=== PATIENT | male | born 1990 | race African-American/Black ===

== ENCOUNTER 2017-01-06 15:26 | Emergency (ER) | payer OTHER ==
[2017-01-06] MEDS ORDERED: KETOROLAC 30 MG/ML 1 ML VIAL IVP STA (15:49)
[2017-01-06] MEDS ORDERED: SODIUM CHLORIDE 0.9% 1,000 ML IV ONE (15:49)
--- NOTE | 2017-01-06 15:58 | ED ---
Chest Pain HPI - General Chief Complaint: Chest Pain Stated Complaint: CHEST PAIN Time Seen by Provider: 01/06/17 15:37 Source: patient Mode of arrival: ambulatory Limitations: no limitations - History of Present Illness Initial Comments: Is a 26-year-old male with no past medical history presents him in [facility] for chest pain and palpitations. He states that it woke him from sleep and was very intense in nature. He states that it was substernal and nonradiating. It was worse with deep breath. He states that it scared him so much that he refused to go to bed and said go to work. He states that he drank some water and it seemed to light and up little bit however persisted so he decided come in. He does state that his mother and aunt had a heart attack in early age. He does smoke cigarettes however no other drug use. No history DVT or PE. No recent travel or surgeries. Patient also admits to having pelvic discomfort. He states that he's been urinating frequently however denies any dysuria or penile discharge. He does have a history of STD area and he does not know if he is been sexually active with anybody with known transmitted disease. No fevers or chills. - Related Data Home Medications Medication Instructions Recorded Confirmed No Known Home Medications [No 01/06/17 01/06/17 Known Home Medications] Allergies Allergy/AdvReac Type Severity Reaction Status Date / Time morphine Allergy Swelling Verified 01/06/17 15:44 Review of Systems ROS Statement: Those systems with pertinent positive or pertinent negative responses have been documented in the HPI. ROS Other: All systems not noted in ROS Statement are negative. EKG Findings - EKG Comments: EKG Findings:: EKG showing normal sinus rhythm with rate of 68. No ST segment changes or T-wave inversions. QTC is 397. Other intervals normal. No ectopy. Past Medical History Past Medical History: No Reported History History of Any Multi-Drug Resistant Organisms: None Reported Past Surgical History: Orthopedic Surgery Past Psychological History: No Psychological Hx Reported Smoking Status: Never smoker Past Alcohol Use History: None Reported Past Drug Use History: None Reported General Exam - General Exam Comments Initial Comments: Constitutional: Awake alert Appears comfortable Head: Normocephalic atraumatic Eyes: no conjunctival injection No scleral icterus EOMI Neck: No JVD Supple Heart: Regular rate rhythm normal S1-S2 no murmurs Lungs: Clear to auscultation bilaterally No wheezing No rales, mild tenderness to palpation along the sternum Abdomen: Soft nondistended nontender, no tenderness to the palpation in the pelvis Extremities: Non edematous DP pulses intact Radial pulses intact Neuro: A&Ox3 No focal neurologic deficits Psych: Appropriate mood and affect Limitations: no limitations Course Vital Signs 01/06/17 01/06/17 01/06/17 15:29 15:49 17:21 Temperature 98.1 F 97.9 F Pulse Rate 103 H 77 Respiratory 20 16 20 Rate Blood Pressure 142/89 129/64 O2 Sat by Pulse 100 100 Oximetry Chest Pain MDM - MDM This is a 26-year-old male presents emergency department for chest pain. EKG was completely unremarkable. D-dimer was slightly positive so CT was performed that ruled out pulmonary embolism. I have a low suspicion that he has small pulmonary embolism although the CT study was suboptimal. The patient is seen when I am medically stable. He felt improved after Toradol and fluids. At this time I feel the patient's symptoms are likely related to a musculoskeletal etiology however he needs close follow up with his primary doctor. Disposition Clinical Impression: Chest pain Disposition: HOME SELF-CARE Condition: Stable Instructions: Chest Pain (ED) Referrals: None,Stated [Primary Care Provider] - 1-2 days
[2017-01-06 16:48] LABS: Appearance,Urine Clear (Clear); Bilirubin,Urine Negative (Negative); Glucose,Urine (UA) Negative (Negative); Ketones,Urine 2+ (Negative); Leukocyte Esterase,Urine Negative (Negative); Nitrite,Urine Negative (Negative); Protein,Urine Negative (Negative); Specific Gravity,Urine 1.008 (1.001-1.035); UA Billing (MACRO vs. MICRO) CHEM; Urobilinogen,Urine <2.0 mg/dL (<2.0)
[2017-01-06 16:49] LABS: Basophils % (A) 0 %; CH 30.7; CHCM 34.5; Eosinophils # (A) 0.2 k/uL (0-0.7); Eosinophils % (A) 2 %; HCT 47.4 % (39.0-53.0); HDW 2.47; HGB 15.6 gm/dL (13.0-17.5); Luc # (Auto) 0.14; Luc % (Auto) 2; Lymphocytes # (A) 2.6 k/uL (1.0-4.8); Lymphocytes % (A) 28 %; MCH 29.5 pg (25.0-35.0); MCHC 32.9 g/dL (31.0-37.0); MCV 89.5 fL (80.0-100.0); Mean Platelet Volume 7.2; Monocytes # (A) 0.5 k/uL (0-1.0); Monocytes % (A) 5 %; Neutrophils # (A) 5.9 k/uL (1.3-7.7); Neutrophils % (A) 63 %; RBC 5.29 m/uL (4.30-5.90); RDW 14.2 % (11.5-15.5); WBC 9.3 k/uL (3.8-10.6); WBC (Perox) 8.93
[2017-01-06 17:01] LABS: ALT 47 U/L (21-72); AST 48 U/L (17-59); Alkaline Phosphatase 71 U/L (38-126); Anion Gap 10 mmol/L; Blood Urea Nitrogen 5 mg/dL (9-20); Calcium 9.5 mg/dL (8.4-10.2); Carbon Dioxide 24 mmol/L (22-30); Chloride 104 mmol/L (98-107); Glucose 87 mg/dL (74-99); Non-African American GFR(MDRD) >60 (>60 ml/min/1.73 sqM); Potassium 4.2 mmol/L (3.5-5.1); Sodium 138 mmol/L (137-145); Total Bilirubin 1.7 mg/dL (0.2-1.3)
[2017-01-06] MEDS ORDERED: RX INFO: IV CONTRAST WAS GIVEN 1 EACH MISC MISCELLANE PRN (17:08)
[2017-01-06 17:22] VITALS: TEMP 97.9
--- NOTE | 2017-01-06 17:40 | XR ---
EXAMINATION TYPE: XR chest 2V DATE OF EXAM: 01/06/2017 COMPARISON: None HISTORY: Chest pain for one day TECHNIQUE: Frontal and lateral views of the chest are obtained. FINDINGS: There is no focal air space opacity, pleural effusion, or pneumothorax seen. The cardiac silhouette size is within normal limits. The osseous structures are intact. IMPRESSION: No acute cardiopulmonary process.
--- NOTE | 2017-01-06 18:05 | CT ---
EXAMINATION TYPE: CT angio chest DATE OF EXAM: 01/06/2017 COMPARISON: NONE HISTORY: Pleuritic chest pains CT DLP: 359.5 mGycm. Automated Exposure Control for Dose Reduction was Utilized. CONTRAST: CTA scan of the thorax is performed with IV Contrast, patient injected with 100 mL of Omnipaque 350, pulmonary embolism protocol. MIP Images are created on CT scanner and reviewed. FINDINGS: LUNGS: Some motion artifact degradation is seen making evaluation slightly suboptimal. The lungs are grossly clear, there is no concerning parenchymal mass or nodule identified. There is no pleural ef fusion or pneumothorax seen. The tracheobronchial tree is patent. MEDIASTINUM: There is suboptimal bolus with thecal contrast in right and left heart systems but no co nvincing CT evidence for large central pulmonary embolism, smaller segmental and subsegmental PE karen ot be excluded on this exam. There are no greater than 1 cm hilar or mediastinal lymph nodes. No c ardiomegaly or pericardial effusion is seen. No aneurysm or aortic dissection is present. Some patchy density anterior superior mediastinum is felt to reflect some residual thymus tissue in patient of t his age. OTHER: Visualized liver is diffusely low dense consistent with fatty infiltration. IMPRESSION: 1. Suboptimal study without CT evidence for large central pulmonary embolism. Smaller segmental and s ubsegmental PE cannot be excluded on this exam. 2. No suspicious acute pulmonary process.
[2017-01-06 18:28] VITALS: BP 129/67; PULSE 84; RESP 17
== END 2017-01-06 18:27 | disposition home or self-care (01) ==
LOC: EC 15:26
DX: R07.2 Precordial pain (principal); R00.2 Palpitations; R35.0 Frequency of micturition; Z88.5 Allergy status to narcotic agent
CPT/HCPCS: 36415; 93005; 85379; 80053; 84484; 85025; 81003; 87491; 87591; 71020; 71275; 99285; 96374; 96361 ×2; Q9967; J1885

== ENCOUNTER 2017-02-09 04:47 | Inpatient (IN) | payer MEDICAID, OTHER ==
--- NOTE | 2017-02-09 05:27 | ED ---
General Adult HPI - General Chief complaint: Psychiatric Symptoms Stated complaint: mental health Time Seen by Provider: 02/09/17 05:15 Source: patient, family, RN notes reviewed Mode of arrival: ambulatory Limitations: no limitations - History of Present Illness Initial comments: Patient is a pleasant 26-year-old male presenting to the emergency department with depression and suicidal thoughts. Patient was recently incarcerated. No current homicidal thoughts. Patient amiss to having suicidal thoughts with plan of shooting himself in the head. Patient does have a history of overdose suicide attempt a few months ago. Patient did drink alcohol today. No street drugs. No physical complaints. Patient states one time he had a vivid dream that he awoke from with questionable hallucination however otherwise no hallucinations. Patient admits to being agitated prior to arrival. - Related Data Home Medications Medication Instructions Recorded Confirmed No Known Home Medications [No 01/06/17 01/06/17 Known Home Medications] Allergies Allergy/AdvReac Type Severity Reaction Status Date / Time morphine Allergy Swelling Verified 02/09/17 05:03 Review of Systems ROS Statement: Those systems with pertinent positive or pertinent negative responses have been documented in the HPI. ROS Other: All systems not noted in ROS Statement are negative. Constitutional: Denies: fever Eyes: Denies: eye pain ENT: Denies: ear pain Respiratory: Denies: cough Cardiovascular: Denies: chest pain Endocrine: Denies: fatigue Gastrointestinal: Denies: vomiting Genitourinary: Denies: dysuria Musculoskeletal: Denies: back pain Skin: Denies: rash Neurological: Denies: weakness Psychiatric: Reports: depression, suicidal thoughts Past Medical History Past Medical History: No Reported History History of Any Multi-Drug Resistant Organisms: None Reported Past Surgical History: Orthopedic Surgery Past Psychological History: No Psychological Hx Reported Smoking Status: Never smoker Past Alcohol Use History: None Reported Past Drug Use History: None Reported General Exam Limitations: no limitations General appearance: alert, in no apparent distress Head exam: Present: atraumatic Eye exam: Present: normal appearance Neck exam: Present: normal inspection Respiratory exam: Present: normal lung sounds bilaterally Cardiovascular Exam: Present: regular rate, normal rhythm GI/Abdominal exam: Present: soft. Absent: tenderness Extremities exam: Present: normal inspection Neurological exam: Present: alert Psychiatric exam: Present: depressed, suicidal ideation Skin exam: Present: normal color Course Vital Signs 09/12/17 04:55 Temperature 97.7 F Pulse Rate 124 H Respiratory 18 Rate Blood Pressure 157/95 O2 Sat by Pulse 97 Oximetry Disposition Referrals: None,Stated [Primary Care Provider] - 1-2 days
[2017-02-09] MEDS ORDERED: MAG HYDROX/AL HYDROX/SIMETH 30 ML CUP PO PRN (15:45)
[2017-02-09] MEDS ORDERED: ACETAMINOPHEN TAB 325 MG TAB PO PRN (15:45)
[2017-02-09] MEDS ORDERED: MAGNESIUM HYDROXIDE 2,400 MG/10 ML CUP PO PRN (15:45)
[2017-02-09 16:19] LABS: Appearance,Urine Clear (Clear); Bacteria,Urine Rare /hpf; Bilirubin,Urine Negative (Negative); Glucose,Urine (UA) Negative (Negative); Ketones,Urine Trace (Negative); Leukocyte Esterase,Urine Small (Negative); Mucus,Urine Rare /hpf; Nitrite,Urine Negative (Negative); PH, Urine 5.5 (5.0-8.0); Particle Count 2948; Protein,Urine Trace (Negative); RBC,Urine <1 /hpf (0-5); Specific Gravity,Urine 1.014 (1.001-1.035); UA Billing (MACRO vs. MICRO) MICRO; Urobilinogen,Urine <2.0 mg/dL (<2.0); WBC,Urine 15 /hpf (0-5)
[2017-02-09] MEDS ORDERED: CALCIUM CARBONATE 500 MG CHEWABLE PO PRN (17:49)
[2017-02-09] MEDS ORDERED: BENZOCAINE/MENTHOL LOZENG 1 EACH LOZENGE MUCOUS MEM PRN (17:49)
[2017-02-09] MEDS: PANTOPRAZOLE 40 MG TABLET PO SCH (17:59)
--- NOTE | 2017-02-09 18:03 | P.HPMEDMHU ---
History of Present Illness H&P Date: 02/09/17 Chief Complaint: sore throat Patient is a 26-year-old -Spanish male with a past medical history of depression, tobacco abuse, alcohol abuse and possible hypertension who presented to the ER with complaint of suicidal ideation. He was admitted to the mental health unit and we are requested to evaluate him for high blood pressure and sore throat. He complains of throat swelling and feeling as though his uvula is enlarged. This is associated with mild throat pain. He also has some retrosternal chest pain without radiation that is intermittent. He is not sure that it is associated with food, exertion, rest, laying flat. He has been drinking approximately 3-4 days out of the week and believes he consumes approximately 1 gallon of alcohol weekly. He states his last drink was last evening. He was seen in the ER recently for an evaluation of chest pain and negative EKG and a negative CTA of the chest. His chest pain is reproducible and does not appear to be cardiac in nature. Review of Systems General: no fever/chills, no rigors, no weight loss/weight gain, no change in appetite Eyes: No double vision, no unusual blurry vision, no loss of vision ENT: No rhinorrhea, congestion, no trush, + sore throat Cardiovascular: + chest pain, no palpitations, no syncope, no edema, No paroxysmal nocturnal dyspnea, No dizziness Pulmonary: No shortness of breath, no wheezing, no cough, hemoptysis Abdominal: No abdominal pain, no constipation, no diarrhea, no vomiting, no nausea, no distention Genitourinary: No dysuria, no urinary frequency, no hematuria, no unusual discharge/odor Neuro: No unusual paresthesias, no unusual paresis/paralysis, no headache Dermatologic: No unusual rashes, no unusual lesions, no unusual changes in nails Endocrinology: No intolerance to heat/cold, no excessive thirst,] no unusual fatigue Hematologic: No unusual bruising or bleeding, no unusual cervical lymphadenopathy Psychiatric: Depression and suicidal ideation, no changes in sleep pattern Past Medical History Past Medical History: No Reported History Additional Past Medical History / Comment(s): Pt states lately he has had some HTN but not on RX History of Any Multi-Drug Resistant Organisms: None Reported Past Surgical History: Orthopedic Surgery Additional Past Surgical History / Comment(s): Bilateral knee arthroscopies. Past Anesthesia/Blood Transfusion Reactions: No Reported Reaction Past Psychological History: Depression Smoking Status: Current every day smoker Past Alcohol Use History: Daily, Heavy Additional Past Alcohol Use History / Comment(s): Patient tells me that he drinks approximately 3-4 days weekly amitriptyline 2 double shots to 1/5. His last drink was approximately 24 hours ago. Past Drug Use History: None Reported - Past Family History Father History Unknown: Yes Mother Family Medical History: CVA/TIA, Diabetes Mellitus, Renal Disease Additional Family Medical History / Comment(s): Mother at the age of 45yrs from a heart attack. She had multiple medical problems including: heart disease , ESRD on dialysis, diabetic neuropathy and a CVA. Medications and Allergies Home Medications Medication Instructions Recorded Confirmed Type No Known Home Medications [No 01/06/17 02/09/17 History Known Home Medications] Allergies Allergy/AdvReac Type Severity Reaction Status Date / Time morphine Allergy Swelling Verified 02/09/17 16:47 Physical Exam Osteopathic Statement: *. No significant issues noted on an osteopathic structural exam other than those noted in the History and Physical/Consult. Vitals: Vital Signs Temp Pulse Pulse Resp BP BP Pulse Ox 02/09/17 16:06 98.7 F 93 15 135/81 97 02/09/17 15:28 88 20 140/75 97 02/09/17 10:12 98.1 F 95 16 135/75 99 02/09/17 04:55 97.7 F 124 H 18 157/95 97 Intake and Output 02/09/17 02/09/17 02/09/17 06:59 14:59 22:59 Other: Weight 97.976 kg 96.5 kg Patient Weight 02/10/17 06:59 Weight 96.5 kg General: non toxic, no distress, appears at stated age, normal weight Derm: no rashes, no lesions, no ulcers, no unusual ecchymoses Head: atraumatic, normocephalic, symmetric Eyes: EOMI, no lid lag, anicteric sclera, pupils equal round reactive to light ENT: no post nasal drip, no thrush , nearest patent, + pharyngeal erythema Neck: No thyromegaly, no cervical lymphadenopathy, trachea midline, supple Mouth: no lip lesion, mucus membranes moist Cardiovascular: + Reproducible chest pain S1S2 reg, no murmur, positive posterior tibial pulse bilateral, no edema , no JVD, no clubbing, no cyanosis, capillary refill less than 2 seconds Lungs: CTA bilateral, no rhonchi, no rales , no accessory muscle use Abdominal: soft, + tender to palpation epigastric, no guarding, no appreciable organomegaly, normal bowel sounds Ext: no gross muscle atrophy, muscle strength 5 out of 5 in all 4 extremities grossly, no contractures, Neuro: CN II-XI grossly intact, light touch intact all 4 extremities, finger to nose within normal limits, Psych: Alert, oriented, appropriate affect Cranial Nerve Examination - Cranial Nerves Cranial Nerve II- Optic: Intact Cranial Nerve III- Oculomotor: Intact Cranial Nerve IV- Trochlear: Intact Cranial Nerve V- Trigeminal: Intact Cranial Nerve - Abducens: Intact Cranial Nerve VII- Facial: Intact Cranial Nerve VIII- Auditory: Intact Cranial Nerve IX- Glossopharyngeal: Intact Cranial Nerve X- Vagus: Intact Cranial Nerve XI- Accessory: Intact Cranial Nerve XII- Hypoglossal: Intact Results Labs: Abnormal Lab Results - Last 24 Hours (Table) 02/09/17 Range/Units 16:02 Urine Protein Trace H (Negative) Urine Ketones Trace H (Negative) Ur Leukocyte Esterase Small H (Negative) Urine WBC 15 H (0-5) /hpf Urine Bacteria Rare H (None) /hpf Urine Mucus Rare H (None) /hpf Assessment and Plan Plan: #Probable alcoholic gastritis -PPI daily -When necessary Tums -Alcohol cessation #Sore throat, suspect secondary to above from acid reflux -PPI -When necessary lozenges #Alcohol abuse -Sensation -Alcohol withdrawal management as per psychiatry -add daily folic acid and thiamine supplementation 7 days. #Tobacco abuse -Cessation recommended -Nicotine replacement #Depression with suicidal ideation -Your psych management Have instructed the patient to notify nursing should his sore throat not resolved after several days of treatment with PPI. Thank you for allowing us to participate in the care of this patient. We will follow peripherally. Do not hesitate to contact us with questions. Someone can be reached from the [facility] hospitalist group at all hours of the day at [phone].
[2017-02-09] MEDS: NICOTINE 14MG/24HR PATCH TRANSDERM SCH (20:24)
[2017-02-09] MEDS: LORazepam 1 MG TAB PO PRN (23:22)
[2017-02-10] MEDS: NICOTINE 14MG/24HR PATCH TRANSDERM SCH (08:17)
[2017-02-10] MEDS: PANTOPRAZOLE 40 MG TABLET PO SCH (08:17)
[2017-02-10] MEDS ORDERED: NICOTINE 14MG/24HR PATCH TRANSDERM SCH (09:00)
[2017-02-10 09:46] LABS: ALT 91 U/L (21-72); AST 68 U/L (17-59); Alkaline Phosphatase 76 U/L (38-126); Anion Gap 11 mmol/L; Blood Urea Nitrogen 8 mg/dL (9-20); Calcium 9.5 mg/dL (8.4-10.2); Carbon Dioxide 25 mmol/L (22-30); Chloride 103 mmol/L (98-107); Glucose 137 mg/dL (74-99); Non-African American GFR(MDRD) >60 (>60 ml/min/1.73 sqM); Potassium 4.3 mmol/L (3.5-5.1); Sodium 139 mmol/L (137-145); Total Bilirubin 1.8 mg/dL (0.2-1.3); Total Protein 6.8 g/dL (6.3-8.2)
[2017-02-10 09:47] LABS: Basophils % (A) 1 %; CH 29.7; CHCM 33.3; Eosinophils # (A) 0.1 k/uL (0-0.7); Eosinophils % (A) 2 %; HCT 47.2 % (39.0-53.0); HDW 2.36; HGB 15.5 gm/dL (13.0-17.5); Luc # (Auto) 0.19; Luc % (Auto) 3; Lymphocytes # (A) 1.8 k/uL (1.0-4.8); Lymphocytes % (A) 31 %; MCH 29.3 pg (25.0-35.0); MCHC 32.8 g/dL (31.0-37.0); MCV 89.5 fL (80.0-100.0); Mean Platelet Volume 7.1; Monocytes # (A) 0.5 k/uL (0-1.0); Monocytes % (A) 8 %; Neutrophils # (A) 3.4 k/uL (1.3-7.7); Neutrophils % (A) 56 %; RBC 5.28 m/uL (4.30-5.90); RDW 12.7 % (11.5-15.5)
[2017-02-10] MEDS: THIAMINE 100 MG TAB PO SCH (12:15)
[2017-02-10] MEDS: FOLIC ACID 1 MG TAB PO SCH (12:15)
[2017-02-10] MEDS: METOPROLOL SUCCINATE (ER) 50 MG TAB.ER.24H PO SCH (12:15)
[2017-02-10] MEDS: LORazepam 1 MG TAB PO PRN (12:17)
[2017-02-10 13:59] VITALS: BMI 28.8
[2017-02-10] MEDS ORDERED: LORazepam 1 MG TAB PO SCH (21:00)
[2017-02-10] MEDS: LITHIUM CARBONATE ER 450 MG TABLET.ER PO SCH (21:36)
[2017-02-10] MEDS: traZODone HCL 100 MG TAB PO SCH (21:36)
[2017-02-10 22:03] LABS: Treponemal Ab Non-Reactive (Non-Reactive)
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
[2017-02-11] MEDS: METOPROLOL SUCCINATE (ER) 50 MG TAB.ER.24H PO SCH (08:48)
[2017-02-11] MEDS: NICOTINE 14MG/24HR PATCH TRANSDERM SCH (08:48)
[2017-02-11] MEDS: PANTOPRAZOLE 40 MG TABLET PO SCH (08:49)
[2017-02-11] MEDS: LORazepam 1 MG TAB PO PRN (08:51)
[2017-02-11] MEDS: THIAMINE 100 MG TAB PO SCH (11:44)
[2017-02-11] MEDS: FOLIC ACID 1 MG TAB PO SCH (11:44)
[2017-02-11] MEDS ORDERED: hydrOXYzine PAMOATE 25 MG CAP PO PRN (14:33)
--- NOTE | 2017-02-11 14:54 | P.PN ---
Subjective Principal diagnosis: Bipolar 1 disorder, most recent episode depressed without psychotic features Patient has shown gains in insight and is more goal oriented than at time of discharge. He states and looks and more kempt. Patient reports tolerating his current regimen of Eskalith + Trazodone well although he does report EDS with Ativan when given during the day and inquires if a different anxiolytic can be substitted that is less sedating. Patient is agreeable to trial of Vistaril. At this time, patient's mood is mildly dysphoric but affect is much brighter today and reactive. He has been actively participating in all groups and recreational activities. At this time, he denies SI/HI/AVH. Patient requests discharge tomorrow so he can return to his two jobs Wednesday. Objective - Vital Signs Vital signs: Vital Signs Temp 97.9 F 02/11/17 06:50 Pulse 94 02/11/17 10:30 Resp 18 02/11/17 10:30 BP 135/77 02/11/17 10:30 Pulse Ox 97 02/09/17 16:06 Intake & Output 02/10/17 02/11/17 02/11/17 18:59 06:59 18:59 Weight 96.5 kg - Musculoskeletal Musculoskeletal: Present: gait normal - Psychiatric Psychiatric: Present: A&O x's 3, appropriate affect, intact judgment & insight - Labs CBC & Chem 7: 02/10/17 08:52 02/10/17 08:52 Assessment and Plan (1) Bipolar I disorder, most recent episode depressed, severe without psychotic features Status: Acute (2) Complicated bereavement Status: Acute Plan: Continue regimen, add Vistaril 50-mg PO Q-6HR for anxiety for patient to see if this is less sedating than Ativan, provisional discharge tomorrow
[2017-02-11] MEDS: LITHIUM CARBONATE ER 450 MG TABLET.ER PO SCH (20:18)
[2017-02-11] MEDS: traZODone HCL 100 MG TAB PO SCH (20:18)
[2017-02-12 06:47] VITALS: TEMP 97.7
[2017-02-12] MEDS: FOLIC ACID 1 MG TAB PO SCH (09:48)
[2017-02-12] MEDS: NICOTINE 14MG/24HR PATCH TRANSDERM SCH (09:48)
[2017-02-12] MEDS: METOPROLOL SUCCINATE (ER) 50 MG TAB.ER.24H PO SCH (09:48)
[2017-02-12] MEDS: PANTOPRAZOLE 40 MG TABLET PO SCH (09:48)
[2017-02-12 09:57] VITALS: BP 120/57; PULSE 107; RESP 20
== END 2017-02-12 12:14 | disposition home or self-care (01) | DRG 885 ==
LOC: EC 04:47 → 3MHU 15:11
PROVIDERS: ADMIT Psychiatry & Neurology Psychiatry; ATTEND Psychiatry & Neurology Psychiatry
DX: F31.4 Bipolar disorder, current episode depressed, severe, without psychotic features (principal); R45.851 Suicidal ideations; A74.9 Chlamydial infection, unspecified; F43.21 Adjustment disorder with depressed mood; G47.00 Insomnia, unspecified; Z91.5 Personal history of self-harm; Z63.8 Other specified problems related to primary support group; Z88.5 Allergy status to narcotic agent
CPT/HCPCS: 80053; 80306; 81001; 82075; 84443; 85025; 86780; 87390; 99285

== ENCOUNTER 2017-02-12 23:48 | Emergency (ER) | payer OTHER ==
[2017-02-12] MEDS ORDERED: LORazepam 2 MG/ML SYRINGE IM STA (23:55)
[2017-02-12] MEDS ORDERED: HALOPERIDOL LACTATE 5 MG/ML 1 ML VIAL IM STA (23:55)
[2017-02-12] MEDS ORDERED: diphenhydrAMINE 50 MG/ML 1 ML VIAL IM STA (23:55)
--- NOTE | 2017-02-13 00:15 | ED ---
General Adult HPI - General Source: patient, police, RN notes reviewed, old records reviewed Mode of arrival: ambulatory Limitations: no limitations <Lamin Sifuentes - Last Filed: 02/13/17 00:14> <Jaspal De León - Last Filed: 02/13/17 12:30> - General Chief complaint: Psychiatric Symptoms Stated complaint: Mental Health Time Seen by Provider: 02/13/17 00:01 - History of Present Illness Initial comments: This is a 18-year-old male here for evaluation of psychiatric disease. She has history of psychiatric disease. Patient is coming in the ER for homicidal and suicidal thoughts. Patient is severely agitated uncooperative and combative with staff and PD upon arrival. (Lamin Sifuentes) - Related Data Previous Rx's Medication Instructions Recorded [place] Carbonate ER [Lithobid] 450 mg PO BID #28 tablet.er 02/12/17 Metoprolol Succinate (ER) [Toprol 50 mg PO DAILY #14 tab 02/12/17 XL] hydrOXYzine PAMOATE [Vistaril] 50 mg PO TID PRN #42 cap 02/12/17 traZODone HCL [Desyrel] 100 mg PO HS #14 tab 02/12/17 Allergies Allergy/AdvReac Type Severity Reaction Status Date / Time morphine Allergy Swelling Verified 02/12/17 23:57 Review of Systems ROS Other: All systems not noted in ROS Statement are negative. <Lamin Sifuentes - Last Filed: 02/13/17 00:14> ROS Other: All systems not noted in ROS Statement are negative. <Jaspal De León - Last Filed: 02/13/17 12:30> ROS Statement: Those systems with pertinent positive or pertinent negative responses have been documented in the HPI. Past Medical History Past Medical History: No Reported History Additional Past Medical History / Comment(s): Pt states lately he has had some HTN but not on RX History of Any Multi-Drug Resistant Organisms: None Reported Past Surgical History: Orthopedic Surgery Additional Past Surgical History / Comment(s): Bilateral knee arthroscopies. Past Anesthesia/Blood Transfusion Reactions: No Reported Reaction Past Psychological History: Depression Smoking Status: Current every day smoker Past Alcohol Use History: Daily, Heavy Past Drug Use History: None Reported - Past Family History Father History Unknown: Yes Mother Family Medical History: CVA/TIA, Diabetes Mellitus, Renal Disease Additional Family Medical History / Comment(s): Mother at the age of 45yrs from a heart attack. She had multiple medical problems including: heart disease , ESRD on dialysis, diabetic neuropathy and a CVA. <Lamin Sifuentes - Last Filed: 02/13/17 00:14> General Exam Limitations: no limitations General appearance: alert, anxious, in distress Head exam: Present: atraumatic, normocephalic, normal inspection Eye exam: Present: normal appearance, PERRL, EOMI. Absent: scleral icterus, conjunctival injection, periorbital swelling ENT exam: Present: normal exam, mucous membranes moist Neck exam: Present: normal inspection. Absent: tenderness, meningismus, lymphadenopathy Respiratory exam: Present: normal lung sounds bilaterally. Absent: respiratory distress, wheezes, rales, rhonchi, stridor Cardiovascular Exam: Present: regular rate, normal rhythm, normal heart sounds. Absent: systolic murmur, diastolic murmur, rubs, gallop, clicks GI/Abdominal exam: Present: soft, normal bowel sounds. Absent: distended, tenderness, guarding, rebound, rigid Extremities exam: Present: normal inspection, full ROM, normal capillary refill. Absent: tenderness, pedal edema, joint swelling, calf tenderness Back exam: Present: normal inspection Neurological exam: Present: alert, oriented X3, CN II-XII intact Psychiatric exam: Present: normal affect, normal mood Skin exam: Present: warm, dry, intact, normal color. Absent: rash <Lamin Sifuentes - Last Filed: 02/13/17 00:14> Course <Lamin Sifuentes - Last Filed: 02/13/17 00:14> <Jaspal De León - Last Filed: 02/13/17 12:30> Vital Signs 02/12/17 02/13/17 02/13/17 23:51 07:56 10:06 Temperature 98 F Pulse Rate 123 H 82 89 Respiratory 24 16 18 Rate Blood Pressure 148/79 116/56 133/78 O2 Sat by Pulse 100 98 99 Oximetry - Reevaluation(s) Reevaluation #1: 02/13/17 00:14 The patient patient bear significant threat to staff, currently on restraints with,: Physical (Lamin Sifuentes) Procedures - Restraint - Face to Face Restraint Occurrence 1 Patient's Immediate Situation: Endangers self safety Patient's Reaction to the Intervention: Uncooperative, Angry, Hostile, Belligerent, Aggressive, Combative Patient's Medical & Behavioral Condition: Anxious, Agitated Need to Continue or Terminate Restraint or Seclusion: Continue <Lamin Sifuentes - Last Filed: 02/13/17 00:14> Medical Decision Making <Lamin Sifuentes - Last Filed: 02/13/17 00:14> <Jaspal De León - Last Filed: 02/13/17 12:30> - Medical Decision Making The patient was deemed to be sober and was evaluated by the psychiatric service. He currently is not suicidal or homicidal. He will be discharged. A negative certification was filled out by me. I did discuss this with the patient. (Jaspal De León) - Lab Data Lab Results 02/13/17 02/13/17 Range/Units 01:13 01:14 Urine Opiates Screen Not Detected (NotDetected) Ur Oxycodone Screen Not Detected (NotDetected) Urine Methadone Screen Not Detected (NotDetected) Ur Propoxyphene Screen Not Detected (NotDetected) Ur Barbiturates Screen Not Detected (NotDetected) U Tricyclic Antidepress Not Detected (NotDetected) Ur Phencyclidine Scrn Not Detected (NotDetected) Ur Amphetamines Screen Not Detected (NotDetected) U Methamphetamines Scrn Not Detected (NotDetected) U Benzodiazepines Scrn Not Detected (NotDetected) Urine Cocaine Screen Not Detected (NotDetected) U Marijuana (THC) Screen Not Detected (NotDetected) Serum Alcohol 295 mg/dL Disposition <Lamin Sifuentes - Last Filed: 02/13/17 00:14> <Jaspal De Lóen - Last Filed: 02/13/17 12:30> Clinical Impression: Adjustment reaction, Alcohol intoxication Disposition: HOME SELF-CARE Condition: Good Instructions: Alcohol Intoxication (ED), Anxiety (ED) Referrals: None,Stated [Primary Care Provider] - 1-2 days
[2017-02-13 12:36] VITALS: BP 121/58; PULSE 81; RESP 20; TEMP 98
== END 2017-02-13 12:35 | disposition home or self-care (01) ==
LOC: EC 23:48
DX: F43.20 Adjustment disorder, unspecified (principal); F10.120 Alcohol abuse with intoxication, uncomplicated; F32.9 Major depressive disorder, single episode, unspecified; F17.200 Nicotine dependence, unspecified, uncomplicated; Z88.5 Allergy status to narcotic agent
CPT/HCPCS: 36415; 80306; 80320; 99285; 96372 ×3; J2060; J1200; J1630

== ENCOUNTER 2018-01-17 13:04 | Inpatient (IN) | payer OTHER ==
[2018-01-17] MEDS ORDERED: HYDROcodone/APAP 5-325MG 1 EACH TAB PO STA (14:10)
[2018-01-17] MEDS ORDERED: PROPARACAINE 0.5% OPHTH DROPS 15 ML BTL RIGHT EYE STA (14:10)
[2018-01-17 14:59] LABS: Basophils % (A) 0 %; Eosinophils # (A) 0.3 k/uL (0-0.7); Eosinophils % (A) 2 %; HCT 47.7 % (39.0-53.0); HGB 16.2 gm/dL (13.0-17.5); Lymphocytes # (A) 3.3 k/uL (1.0-4.8); Lymphocytes % (A) 31 %; MCH 28.9 pg (25.0-35.0); Mean Platelet Volume 6.7; Monocytes # (A) 0.6 k/uL (0-1.0); Monocytes % (A) 6 %; Neutrophils # (A) 6.2 k/uL (1.3-7.7); Neutrophils % (A) 59 %; Platelet Count 335 k/uL (150-450); RBC 5.61 m/uL (4.30-5.90); RDW 13.5 % (11.5-15.5); WBC 10.5 k/uL (3.8-10.6)
[2018-01-17 15:14] LABS: ALT 70 U/L (21-72); AST 36 U/L (17-59); Albumin 3.9 g/dL (3.5-5.0); Alkaline Phosphatase 90 U/L (38-126); Anion Gap 10 mmol/L; Blood Urea Nitrogen 10 mg/dL (9-20); Calcium 9.3 mg/dL (8.4-10.2); Carbon Dioxide 22 mmol/L (22-30); Chloride 107 mmol/L (98-107); Glucose 117 mg/dL (74-99); Potassium 4.2 mmol/L (3.5-5.1); Sodium 139 mmol/L (137-145); Total Bilirubin 0.6 mg/dL (0.2-1.3); Total Protein 6.4 g/dL (6.3-8.2)
--- NOTE | 2018-01-17 15:15 | CT ---
EXAMINATION TYPE: CT orbits w con DATE OF EXAM: 01/17/2018 COMPARISON: None HISTORY: Right eye swelling x 1 1/[address] DLP: 318.4 mGycm Automated exposure control for dose reduction was used. CONTRAST: Performed with IV Contrast, patient injected with 100 mL of Isovue M300. FINDINGS: There is mild skin thickening and subcutaneous edema anterior and lateral to the right globe preorbit al region. Intraconal fat is preserved bilaterally. Orbital floors and mckinney are intact. Rectus muscl es are symmetric and within normal limits. There is mild to minimal mucosal thickening in visualized portion of right maxillary sinus. Remainder paranasal sinuses are clear. Visualized portion of brain parenchyma is unremarkable. Visualized portion of mastoid air cells show no suspicious opacification. IMPRESSION: NO POST SEPTAL INFECTION OR SUSPICIOUS FAT STRANDING.
--- NOTE | 2018-01-17 15:15 | ED ---
Eye Problem HPI - General Source: patient Mode of arrival: ambulatory Limitations: no limitations <Arley Cohen - Last Filed: 01/17/18 15:37> <Jaspal De León - Last Filed: 01/17/18 15:50> - General Chief complaint: Eye Problems Stated complaint: eye swelling, Time Seen by Provider: 01/17/18 13:58 - History of Present Illness Initial comments: This is a 27-year-old male presents emergency Department chief complaint of right eye pain. Patient states it started 10 days ago with some right eye irritation and are sty. He states that he was using some sty cream which made it worse so use some old eyedrops that he had. Patient states he had no improvements he went to [facility] last Wednesday was placed on some eyedrops. He was follow-up with an court assistant on Wednesday who checked his eye on told him it was not his eye that there something behind around his eye causing the issue. He was given a prescription for CT and given a prescription for prednisone. He did not had a CT performed though he did take the prednisone-induced eyedrops. They states is swollen much more after stopping the eyedrops days had increased pain and pressure. Patient states that his vision is blurred. Patient states that he's had no fever no chills he does complain of mild headache. Patient denies any trauma. (Arley Cohen) - Related Data Home Medications Medication Instructions Recorded Confirmed Acamprosate Calcium [Campral] 333 mg PO TID 01/17/18 01/17/18 [place] Carbonate 600 mg PO DAILY 01/17/18 01/17/18 Loratadine [Claritin] 10 mg PO DAILY 01/17/18 01/17/18 Metoprolol Tartrate [Lopressor] 50 mg PO BID 01/17/18 01/17/18 Omeprazole 20 mg PO DAILY 01/17/18 01/17/18 QUEtiapine FUMARATE 400 mg PO HS 01/17/18 01/17/18 hydrOXYzine PAMOATE [Vistaril] 50 mg PO TID 01/17/18 01/17/18 traZODone HCL [Desyrel] 200 mg PO HS 01/17/18 01/17/18 Allergies Allergy/AdvReac Type Severity Reaction Status Date / Time morphine Allergy Swelling Verified 01/17/18 14:31 Review of Systems ROS Other: All systems not noted in ROS Statement are negative. <MariamArley rubio - Last Filed: 01/17/18 15:37> ROS Other: All systems not noted in ROS Statement are negative. <Jaspal De León - Last Filed: 01/17/18 15:50> ROS Statement: Those systems with pertinent positive or pertinent negative responses have been documented in the HPI. Past Medical History Past Medical History: Asthma Additional Past Medical History / Comment(s): Pt states lately he has had some HTN but not on RX History of Any Multi-Drug Resistant Organisms: None Reported Past Surgical History: Orthopedic Surgery Additional Past Surgical History / Comment(s): Bilateral knee arthroscopies. Past Anesthesia/Blood Transfusion Reactions: No Reported Reaction Past Psychological History: Depression Smoking Status: Current every day smoker Past Alcohol Use History: Daily, Heavy Past Drug Use History: None Reported - Past Family History Father History Unknown: Yes Mother Family Medical History: CVA/TIA, Diabetes Mellitus, Renal Disease Additional Family Medical History / Comment(s): Mother at the age of 45yrs from a heart attack. She had multiple medical problems including: heart disease , ESRD on dialysis, diabetic neuropathy and a CVA. <MariamArley rubio - Last Filed: 01/17/18 15:37> General Exam Limitations: no limitations General appearance: alert, in no apparent distress Head exam: Present: atraumatic, normocephalic, normal inspection Eye exam: Present: PERRL, EOMI, conjunctival injection (Severe right), periorbital swelling (Right), periorbital tenderness. Absent: normal appearance , scleral icterus Expanded Eyelids: Normal Inspection: Left, Swelling: Right Pupils: Regular, Round: Bilateral Sclera/Conjunctival: Normal Inspection: Left, Injection: Right Anterior chamber: Normal Inspection: Bilateral IOP (R) in mmH IOP (L) in mmH ENT exam: Present: normal exam, normal oropharynx, mucous membranes moist Neck exam: Present: normal inspection, full ROM. Absent: tenderness, meningismus, lymphadenopathy Respiratory exam: Present: normal lung sounds bilaterally. Absent: respiratory distress, wheezes, rales, rhonchi, stridor Cardiovascular Exam: Present: regular rate, normal rhythm, normal heart sounds. Absent: systolic murmur, diastolic murmur, rubs, gallop, clicks <VickiArley Vergara - Last Filed: 01/17/18 15:37> Course <VickiArley Vergara - Last Filed: 01/17/18 15:37> <Jaspal De León - Last Filed: 01/17/18 15:50> Vital Signs 01/17/18 13:35 Temperature 98.2 F Pulse Rate 79 Respiratory 18 Rate Blood Pressure 147/79 O2 Sat by Pulse 98 Oximetry - Reevaluation(s) Reevaluation #1: 01/17/18 15:50 PA supervision: I personally saw and examined the patient. I reviewed and agree with the PA findings including all diagnostic interpretations and treatment plans is written unless otherwise stated. I did discuss case with Dr. Barger. Ophthalmology will be consulted. MRI of the orbits is ordered. ( Jaspal De León) Medical Decision Making - Lab Data Result diagrams: 01/17/18 14:41 01/17/18 14:41 <VickiArley Vergara - Last Filed: 01/17/18 15:37> - Lab Data Result diagrams: 01/17/18 14:41 01/17/18 14:41 <Jaspal De León - Last Filed: 01/17/18 15:50> - Lab Data Lab Results 01/17/18 01/17/18 Range/Units 14:41 14:41 WBC 10.5 (3.8-10.6) k/uL RBC 5.61 (4.30-5.90) m/uL Hgb 16.2 (13.0-17.5) gm/dL Hct 47.7 (39.0-53.0) % MCV 85.0 (80.0-100.0) fL MCH 28.9 (25.0-35.0) pg MCHC 34.0 (31.0-37.0) g/dL RDW 13.5 (11.5-15.5) % Plt Count 335 (150-450) k/uL Neutrophils % 59 % Lymphocytes % 31 % Monocytes % 6 % Eosinophils % 2 % Basophils % 0 % Neutrophils # 6.2 (1.3-7.7) k/uL Lymphocytes # 3.3 (1.0-4.8) k/uL Monocytes # 0.6 (0-1.0) k/uL Eosinophils # 0.3 (0-0.7) k/uL Basophils # 0.0 (0-0.2) k/uL Sodium 139 (137-145) mmol/L Potassium 4.2 (3.5-5.1) mmol/L Chloride 107 (98-107) mmol/L Carbon Dioxide 22 (22-30) mmol/L Anion Gap 10 mmol/L BUN 10 (9-20) mg/dL Creatinine 0.70 (0.66-1.25) mg/dL Est GFR (CKD-EPI)AfAm >90 (>60 ml/min/1.73 sqM) Est GFR (CKD-EPI)NonAf >90 (>60 ml/min/1.73 sqM) Glucose 117 H (74-99) mg/dL Calcium 9.3 (8.4-10.2) mg/dL Total Bilirubin 0.6 (0.2-1.3) mg/dL AST 36 (17-59) U/L ALT 70 (21-72) U/L Alkaline Phosphatase 90 (38-126) U/L Total Protein 6.4 (6.3-8.2) g/dL Albumin 3.9 (3.5-5.0) g/dL Disposition <Arley Cohen - Last Filed: 01/17/18 15:37> <Jaspal De León - Last Filed: 01/17/18 15:50> Clinical Impression: Orbital cellulitis on right, Increased intraocular pressure Disposition: ADMITTED IP TO [facility] Condition: Stable Referrals: None,Stated [Primary Care Provider] - 1-2 days
[2018-01-17] MEDS ORDERED: NALOXONE 0.4 MG/ML 1 ML VIAL IV PRN (15:39)
[2018-01-17] MEDS ORDERED: PIPERACILLIN-TAZOBACTAM 3.375 GM in DEXTROSE/WATER 1 50ML.BAG IVPB STA (15:40)
[2018-01-17] MEDS ORDERED: TOBRAMYCIN 0.3% OPHTH DROPS 5 ML BTL RIGHT EYE STA (15:41)
[2018-01-17] MEDS ORDERED: PIPERACILLIN-TAZOBACTAM 3.375 GM in DEXTROSE/WATER 1 50ML.BAG IVPB SCH (16:00)
--- NOTE | 2018-01-17 16:50 | MR ---
EXAMINATION TYPE: MR orbits wo/w con DATE OF EXAM: 01/17/2018 COMPARISON: CT orbits 01/17/2018 HISTORY: Right eye swelling x 1 1/2 weeks, Gadavist 12 TECHNIQUE: Multiplanar, multisequence images of the brain and brainstem is performed without and with IV contras t, utilizing 12 mL intravenous Gadavist . FINDINGS: Portion of the brain included within the [id number] appears unremarkable. Attention is paid to the orbits. The globes are symmetrical. Intraconal and extraconal fat appears unremarkable. Extraocular muscles are normal. Lacrimal glands may be slightly asymmetric with slightly larger right lacrimal gland compared to the left. Enhancement pattern appears similar. There is mild soft tissue swelling over the right orbit. No retrobulbar abnormality or mass is eviden t. IMPRESSION: 1. Findings could be related to preseptal orbital cellulitis. 2. There is some asymmetry of the lacrimal gland size with a larger right than left. However, no mass effect on the adjacent orbit is appreciated in the orbits appear symmetrical.
[2018-01-17 17:48] VITALS: BMI 34.7
[2018-01-17] MEDS ORDERED: ALPRAZolam 0.25 MG TAB PO PRN (17:55)
[2018-01-17] MEDS ORDERED: TEMAZEPAM 15 MG CAP PO PRN (17:55)
[2018-01-17] MEDS ORDERED: ACETAMINOPHEN TAB 500 MG TAB PO PRN (17:55)
[2018-01-17] MEDS: HYDROcodone/APAP 5-325MG 1 EACH TAB PO PRN ×2 (18:00→22:59)
[2018-01-17 18:44] LABS: Appearance,Urine Clear (Clear); Bilirubin,Urine Negative (Negative); Blood,Urine Negative (Negative); Color,Urine Light Yellow; Glucose,Urine (UA) Negative (Negative); Ketones,Urine Negative (Negative); Leukocyte Esterase,Urine Negative (Negative); Nitrite,Urine Negative (Negative); Protein,Urine Negative (Negative); Specific Gravity,Urine 1.031 (1.001-1.035); Urobilinogen,Urine <2.0 mg/dL (<2.0)
[2018-01-17 18:49] LABS: Prothrombin Time 9.6 sec (9.0-12.0)
[2018-01-17] MEDS: traZODone HCL 100 MG TAB PO SCH (20:35)
[2018-01-17] MEDS: hydrOXYzine PAMOATE 25 MG CAP PO SCH (20:35)
[2018-01-17] MEDS: HEPARIN SODIUM,PORCINE 5,000 UNIT/ML 1 ML VIAL SQ SCH (20:36)
[2018-01-17] MEDS: METOPROLOL TARTRATE 50 MG TAB PO SCH (20:36)
[2018-01-17] MEDS: ACAMPROSATE CALCIUM 333 MG TABLET.DR PO SCH (22:59)
[2018-01-17] MEDS: QUEtiapine 400 MG TAB PO SCH (22:59)
[2018-01-17 23:40] LABS: Amphetamine Screen,Urine Not Detected (NotDetected); Barbiturate Screen,Urine Not Detected (NotDetected); Benzodiazepines Screen,Urine Not Detected (NotDetected); Cocaine Screen,Urine Not Detected (NotDetected); Methadone Screen, Urine Not Detected (NotDetected); Opiate Screen,Urine Not Detected (NotDetected); Oxycodone Screen, Urine Not Detected (NotDetected); Phencyclidine Screen,Urine Not Detected (NotDetected); Tricyclic Antidepressant,Urine Not Detected (NotDetected); Urn Cannabinoid Scrn Not Detected (NotDetected)
[2018-01-18] MEDS: PIPERACILLIN-TAZOBACTAM 3.375 GM in DEXTROSE/WATER 1 50ML.BAG IVPB SCH ×3 (01:18→18:13)
[2018-01-18 07:33] LABS: Basophils % (A) 0 %; Eosinophils % (A) 0 %; HCT 47.8 % (39.0-53.0); HGB 15.2 gm/dL (13.0-17.5); Lymphocytes % (A) 9 %; MCH 27.3 pg (25.0-35.0); MCHC 31.9 g/dL (31.0-37.0); MCV 85.8 fL (80.0-100.0); Mean Platelet Volume 6.9; Monocytes # (A) 0.5 k/uL (0-1.0); Monocytes % (A) 4 %; Neutrophils # (A) 9.8 k/uL (1.3-7.7); Neutrophils % (A) 87 %; Platelet Count 333 k/uL (150-450); RBC 5.57 m/uL (4.30-5.90); RDW 13.2 % (11.5-15.5); WBC 11.4 k/uL (3.8-10.6)
[2018-01-18 07:45] LABS: Anion Gap 6 mmol/L; Blood Urea Nitrogen 9 mg/dL (9-20); Calcium 9.3 mg/dL (8.4-10.2); Carbon Dioxide 24 mmol/L (22-30); Chloride 108 mmol/L (98-107); Glucose 153 mg/dL (74-99); Potassium 5.1 mmol/L (3.5-5.1); Sodium 138 mmol/L (137-145)
--- NOTE | 2018-01-18 08:02 | HP ---
HISTORY AND PHYSICAL CHIEF COMPLAINT: Pain and swelling of the right eye. HISTORY OF PRESENT ILLNESS: This is a 27-year-old gentleman with a past medical history of multiple medical problems including history of asthma, hypertension, history anxiety, depression, being followed by no primary physician in the outpatient setting was noted to have right eye pain for the last 11 days. The patient works in cooking different places. The patient was uses some sty cream, but the redness worsened and there is some pain also. The patient did some eye drops. Because of lack of improvement, the patient went [facility] and subsequently patient was evaluated at [facility] as well. The patient was thought to have uveitis, but because of increasing pain and swelling the patient came to [facility] and the patient admitted for further evaluation and treatment. Patient is also taking prednisone induced eyedrops as well. The vision is also blurred. Ophthalmology evaluation was in progress also. In the ER, the patient underwent orbit, face and neck MRI which showed preseptal orbital cellulitis possibly and some asymmetry of lacrimal gland size larger right than the left was also noted. There is no history of any fever or rigors. There is no history of headache, loss of consciousness or seizures. A CT scan of the orbit showed no acute abnormality. PAST MEDICAL HISTORY: History of hypertension, history of asthma, anxiety, depression. MEDICATIONS: Home medications are: 1. [place] carbonate 600 mg p.o. daily. 2. Desyrel 200 mg at bedtime. 3. Zestril 50 mg t.i.d. 4. Seroquel 400 mg at bedtime. 5. Omeprazole 20 mg daily. 6. Lopressor 50 mg b.i.d. 7. Claritin 10 mg daily. 8. Campral 333 mg p.o. t.i.d. ALLERGIES: Allergies are MORPHINE. FAMILY HISTORY: History of diabetes mellitus, CVA, renal disease, heart attack. SOCIAL HISTORY: History of alcohol, history of nicotine dependence. REVIEW OF SYSTEMS: ENT: As mentioned earlier. CARDIOVASCULAR SYSTEM: No angina. RESPIRATORY SYSTEM: No cough. GI: No nausea. : No dysuria. NERVOUS SYSTEM: No numbness or weakness. ALLERGY/IMMUNOLOGY: Asthma. MUSCULOSKELETAL: As mentioned earlier. HEMATOLOGY/ONCOLOGY: No history of anemia. ENDOCRINE: No history of diabetes mellitus or hypothyroidism. CONSTITUTIONAL: As mentioned earlier. DERMATOLOGY: Negative. RHEUMATOLOGY: Negative. PSYCHIATRY: As mentioned earlier. PHYSICAL EXAMINATION: The patient is alert and oriented x3. Pulse 88, blood pressure 133/81, respiration 18, temperature 98.4, pulse ox 98% on room air. HEENT: Conjunctivae normal. Oral mucosa moist. The right eye some exophthalmos and minimal tenderness and also significant conjunctival erythema also present. Pupils are regular. The vision is slightly reduced, otherwise normal. NECK: No jugular venous distention. No carotid bruit. No lymph node enlargement. CARDIOVASCULAR: S1 and S2 muffled. RESPIRATORY: Breath sounds diminished at the bases. No rhonchi, no crackles. ABDOMEN: Soft, nontender. No mass palpable. LEGS: No edema, no swelling. NERVOUS SYSTEM: Higher functions as mentioned earlier otherwise moves all 3 limbs. No focal motor deficits. LYMPHATICS: No lymphadenopathy of the neck, axillae or groin. SKIN: No ulcer, rash or bleeding. LAB INVESTIGATIONS: CBC within normal limits. Sodium 139, potassium 4.2. Plasma lactic acid 2.1. ASSESSMENT: 1. Right orbital swelling, possible preseptal orbital cellulitis with rule out sepsis. 2. Rule out uveitis. 3. Hypertension. 4. History of asthma. 5. History of anxiety, depression. 6. History of nicotine dependence. 7. History of degenerative joint disease. RECOMMENDATIONS AND DISCUSSION: This 27-year-old gentleman who presented with multiple complex medical issues, will monitor the patient closely. Continue the current medications, continue symptomatic treatment. Ophthalmology and Infectious Disease evaluations. Broad-spectrum IV antibiotics. Cultures. Guarded prognosis because of multiple complex medical issues. Further recommendations to follow. I also recommend the patient to follow up with a primary physician closely in the outpatient setting also. See orders for details. MMODL / IJN: [id number] /
[2018-01-18] MEDS ORDERED: NON-FORMULARY DRUG (Omeprazole [Omeprazole] 20 MG) PO SCH (09:00)
[2018-01-18] MEDS: HYDROcodone/APAP 5-325MG 1 EACH TAB PO PRN ×3 (09:09→22:55)
[2018-01-18] MEDS: LITHIUM CARBONATE 300 MG CAP PO SCH (09:10)
[2018-01-18] MEDS: hydrOXYzine PAMOATE 25 MG CAP PO SCH ×3 (09:10→20:51)
[2018-01-18] MEDS: METOPROLOL TARTRATE 50 MG TAB PO SCH ×2 (09:10→20:51)
[2018-01-18] MEDS: ACAMPROSATE CALCIUM 333 MG TABLET.DR PO SCH ×3 (09:10→20:51)
[2018-01-18] MEDS: HEPARIN SODIUM,PORCINE 5,000 UNIT/ML 1 ML VIAL SQ SCH ×2 (09:11→20:52)
[2018-01-18] MEDS: PANTOPRAZOLE 40 MG TABLET PO SCH (09:11)
[2018-01-18] MEDS: LORATADINE 10 MG TAB PO SCH (09:11)
[2018-01-18] MEDS ORDERED: VANCOMYCIN IV PER PHARMACY 1 EACH MISC MISCELLANE PRN (13:56)
[2018-01-18] MEDS ORDERED: VANCOMYCIN 1,750 MG in SODIUM CHLORIDE 0.9% 500 ML IVPB STA (14:00)
--- NOTE | 2018-01-18 18:20 | PN ---
PROGRESS NOTE DATE OF SERVICE: 01/18/2018 This 27-year-old gentleman who was admitted after pain and swelling of the right eye also had features of uveitis. The patient was started on broad-spectrum IV antibiotics. Infectious disease and ophthalmology consultations are ongoing at this time. No chest pain. No palpitations. No fever. PHYSICAL EXAMINATION: Alert and oriented x3. Pulse 86, blood pressure 105/67, respirations 16, temperature 97.2, pulse ox 97% on room air. HEENT: Conjunctivae normal. Oral mucosa moist. Examination of the right eye: redness present. NECK: No jugular venous distention. No carotid bruit. No lymph node enlargement. CARDIOVASCULAR SYSTEM: S1, S2 muffled. RESPIRATORY SYSTEM: Breath sounds diminished at the bases. No rhonchi. No crackles. ABDOMEN: Soft, non-tender. LEGS: No edema. No swelling. NERVOUS SYSTEM: No focal deficit. LAB INVESTIGATIONS: Lab investigations at this time show WBC 11.5, hemoglobin 15.2, sodium 138, potassium 5.1. ASSESSMENT: 1. Right periorbital swelling with possible preseptal orbital cellulitis and rule out sepsis. 2. Right eye possible uveitis. 3. Hypertension. 4. History of asthma. 5. History of anxiety, depression. 6. History of nicotine dependence. 7. History of degenerative joint disease. RECOMMENDATIONS AND DISCUSSION: I recommend to continue current medication, continue with the monitoring, symptomatic treatment. I would recommend continued broad-spectrum IV antibiotics. Ophthalmology and infectious disease evaluations. Guarded prognosis because of multiple complex medical issues. Further recommendations to follow. MMODL / IJN: [id number] /
--- NOTE | 2018-01-18 19:53 | CONS ---
CONSULTATION DATE OF SERVICE: 01/18/2018 REASON FOR CONSULTATION: Right preseptal cellulitis. HISTORY OF PRESENT ILLNESS: The patient is a 27-year-old -[place] male who started having a problem with his right upper eyelid. The patient says it started as a stye, for which he used some cream. The area became more swollen and red. The patient was seen at [facility]. The patient was evaluated and sent to an director business management. The patient was evaluated. He was started on oral prednisone in addition to antibiotic drops to the eyelid. The patient is not sure about the name of those antibiotic eyedrops. The patient came to the [facility] ER with the chief complaints of right eye and periorbital pain, swelling, redness, pain described to be throbbing at times, dull, aching, almost 7 to 8 out of 10, and no radiation. The patient denies having any high- grade fever or rigors or chills. No nausea or vomiting. He denies having any history of skin and soft tissue infection. The patient on arrival in the ER was afebrile. He did have a normal white count. Lactic acid was 2.1. Repeat is 1.3. UA was negative. Urine drug screen was negative. Blood cultures were obtained. He also had a culture obtained from the right eye, which is currently pending. He was started on Zosyn and admitted to the hospital. Infectious Disease was consulted for further recommendations regarding antibiotic therapy. The patient did have a head and orbit CT initially completed that shows no postseptal infection or suspicious fat stranding. He also had an orbits/face/neck MRI with findings that could be related to preseptal orbital cellulitis; some asymmetry of the lacrimal glands, larger right than left. REVIEW OF SYSTEMS: CONSTITUTIONAL: Positive for weakness. Denies high-grade fever. EYES: As per HPI. ENT: No complaint. RESPIRATORY: No complaint. CARDIOVASCULAR: No complaint. GENITOURINARY: No complaint. GASTROINTESTINAL: No complaint. MUSCULOSKELETAL: No complaint. INTEGUMENTARY: No complaint. PSYCHOLOGICAL: No complaint. ENDOCRINE: No complaint. NEUROLOGICAL: No complaint. PAST MEDICAL HISTORY: Significant for asthma and hypertension. PAST SURGICAL HISTORY: Bilateral knee arthroscopies. PAST PSYCHOLOGIC HISTORY: Positive for depression. SOCIAL HISTORY: Current an everyday smoker. Does drink. No drug use. FAMILY HISTORY: Mother with history of diabetes and renal disease. ALLERGIES: MORPHINE. CURRENT MEDICATIONS: 1. Tylenol. 2. Cordova. 3. Xanax. 4. Heparin. 5. Vistaril. 6. Orland carbonate. 7. Claritin. 8. Lopressor. 9. Narcan. 10.Protonix. 11.Zosyn. 12.Seroquel. 13.Restoril. 14.Trazodone. PHYSICAL EXAMINATION: Blood pressure is 105/67, pulse of 86, temperature 97.9. He is 97% on room air. General description is a young male lying in bed in no distress. HEENT EXAMINATION: There is some right periorbital swelling and redness, though the patient says he was able to open his eyes completely yesterday. Oral mucosa membrane is dry. No pharyngeal erythema or thrush. NECK: Trachea is central. No thyromegaly. LUNGS: Unlabored breathing. Clear to auscultation anteriorly. No wheeze or crackle. HEART: S1, S2. Regular rate and rhythm. ABDOMEN: Soft. No tenderness. No guarding or rigidity. EXTREMITIES: No edema of the feet. SKIN EXAMINATION: No rash or mass palpable. Neurologically the patient is awake, alert, oriented x3. Mood and affect normal. LABS: Hemoglobin is 15.2 with white count of 11.4, BUN of 9, creatinine 0.82. UA is negative. Urine drug screen was negative. Blood culture as well as eye cultures are currently pending. DIAGNOSTIC IMPRESSION AND PLAN: Patient with right preseptal cellulitis that started as a stye. The likely organism will be either Staphylococcus aureus and less likely a gram-negative such as pseudomonas, currently with no evidence of any abscess or any concern about orbital cellulitis clinically or on the basis of ophthalmological findings. PLAN: 1. Recommend adding vancomycin, Pharmacy to dose, with a target of 15. 2. Will wait for the eye culture to finalize to determine his discharge antibiotics. Thank you for this consultation. Will follow this patient along with you. MMODL / IJN: [id number] /
[2018-01-18] MEDS ORDERED: BENZOCAINE/MENTHOL LOZENG 1 EACH LOZENGE MUCOUS MEM PRN (20:39)
[2018-01-18] MEDS: NICOTINE 21MG/24HR PATCH TRANSDERM SCH (20:50)
[2018-01-18] MEDS: traZODone HCL 100 MG TAB PO SCH (20:51)
[2018-01-18] MEDS: QUEtiapine 400 MG TAB PO SCH (20:51)
[2018-01-18] MEDS: VANCOMYCIN 1,750 MG in SODIUM CHLORIDE 0.9% 500 ML IVPB SCH (22:54)
[2018-01-19] MEDS: PIPERACILLIN-TAZOBACTAM 3.375 GM in DEXTROSE/WATER 1 50ML.BAG IVPB SCH ×2 (01:27→11:01)
[2018-01-19] MEDS: VANCOMYCIN 1,750 MG in SODIUM CHLORIDE 0.9% 500 ML IVPB SCH ×2 (05:34→15:51)
[2018-01-19] MEDS: HYDROcodone/APAP 5-325MG 1 EACH TAB PO PRN (05:34)
[2018-01-19 07:26] LABS: Basophils # (A) 0.1 k/uL (0-0.2); Basophils % (A) 1 %; Eosinophils # (A) 0.2 k/uL (0-0.7); Eosinophils % (A) 2 %; HCT 46.7 % (39.0-53.0); HGB 14.6 gm/dL (13.0-17.5); Lymphocytes # (A) 3.9 k/uL (1.0-4.8); Lymphocytes % (A) 38 %; MCH 27.5 pg (25.0-35.0); MCHC 31.3 g/dL (31.0-37.0); MCV 87.9 fL (80.0-100.0); Monocytes # (A) 0.5 k/uL (0-1.0); Monocytes % (A) 5 %; Neutrophils # (A) 5.4 k/uL (1.3-7.7); Neutrophils % (A) 53 %; Platelet Count 279 k/uL (150-450); RBC 5.31 m/uL (4.30-5.90); RDW 13.7 % (11.5-15.5); WBC 10.3 k/uL (3.8-10.6)
[2018-01-19 07:51] LABS: Anion Gap 5 mmol/L; Blood Urea Nitrogen 8 mg/dL (9-20); Calcium 8.4 mg/dL (8.4-10.2); Carbon Dioxide 25 mmol/L (22-30); Chloride 110 mmol/L (98-107); Glucose 153 mg/dL (74-99); Potassium 4.4 mmol/L (3.5-5.1); Sodium 140 mmol/L (137-145)
[2018-01-19 07:57] VITALS: RESP 18
[2018-01-19] MEDS: ACAMPROSATE CALCIUM 333 MG TABLET.DR PO SCH ×2 (09:36→15:12)
[2018-01-19] MEDS: NICOTINE 21MG/24HR PATCH TRANSDERM SCH (09:36)
[2018-01-19] MEDS: hydrOXYzine PAMOATE 25 MG CAP PO SCH ×2 (09:36→15:12)
[2018-01-19] MEDS: METOPROLOL TARTRATE 50 MG TAB PO SCH (09:36)
[2018-01-19] MEDS: LITHIUM CARBONATE 300 MG CAP PO SCH (09:36)
[2018-01-19] MEDS: PANTOPRAZOLE 40 MG TABLET PO SCH (09:36)
[2018-01-19] MEDS: HEPARIN SODIUM,PORCINE 5,000 UNIT/ML 1 ML VIAL SQ SCH (09:37)
[2018-01-19] MEDS: LORATADINE 10 MG TAB PO SCH (09:38)
--- NOTE | 2018-01-19 11:48 | PN ---
PROGRESS NOTE DATE OF SERVICE: 01/19/2018 REASON FOR FOLLOWUP: Right preseptal cellulitis. INTERVAL HISTORY: The patient is afebrile. The right periorbital pain and swelling has improved. The patient denies any blurriness of vision. Denies having any chest pain, shortness of breath or cough. No abdominal pain or any diarrhea. PHYSICAL EXAMINATION: On examination, blood pressure is 117/71 with a pulse of 83, temperature 97.4. He is 96% on room air. General description is a young male lying in bed in no distress. HEENT examination right periorbital swelling and redness have improved. LUNGS: Unlabored breathing, clear to auscultation anteriorly. HEART: S1, S2. Regular rate and rhythm. ABDOMEN: Soft, no tenderness. LABS: White count normal at 10.3 with a BUN of 8, creatinine 0.8. The eye cultures preliminarily so far negative. Blood culture negative. DIAGNOSTIC IMPRESSION AND PLAN: Patient with right preseptal cellulitis. The patient seemed to have shown clinical improvement. Will finish therapy with oral Bactrim DS and Keflex combination for 10 days. Also recommend anti-inflammatory eye drops to some of the inflammation and close outpatient followup. MMODL / IJN: [id number] /
[2018-01-19 16:15] VITALS: BP 121/77; PULSE 89; TEMP 97.7
--- NOTE | 2018-01-19 19:36 | CONS ---
CONSULTATION CHIEF COMPLAINT: Redness right eye for a week and a half, associated with mild blurriness of vision. HISTORY OF PRESENT ILLNESS: This started a week and a half. No history of diabetes. No history of low immunity. No history of sexually transmitted disease. This is the first attack. The patient feels a little bit of an ache in the right eye associated with blurriness. He did not use any eyedrops. EYE EXAMINATION: Vision in both eyes is 20/20 reading chart. Extraocular motility full. Right upper and lower lid shows 1+ edema. Conjunctivae shows 3+ injection. Cornea clear. No keratitis. Anterior chamber was quiet with no iritis or hypopyon. Retina tried to examine. Unable to see due to the unavailability of a good indirect ophthalmoscope in [facility]. CT scan reviewed. ASSESSMENT: Right preseptal cellulitis. PLAN: Continue antibiotics orally if possible. Patient to be discharged if Dr. Moore accepts. I will see the patient tomorrow again in the office at 4:30 p.m. I started the patient on Vigamox eye drops, 1 drop 4 times a day to the right eye. MMODL / IJN: [id number] /
--- NOTE | 2018-01-19 22:03 | DS ---
DISCHARGE SUMMARY FINAL DIAGNOSES: 1. Right periorbital swelling with possible preseptal orbital cellulitis. 2. Right eye possible uveitis. 3. Hypertension. 4. History of asthma. 5. History of anxiety and depression. 6. History of nicotine dependence. 7. Degenerative joint disease. DISCHARGE DISPOSITION: The patient will be discharged in stable condition with guarded prognosis. HISTORY OF PRESENT ILLNESS: This 27-year-old gentleman admitted with right eye periorbital cellulitis also was thought to have right preseptal cellulitis and the patient was evaluated by Ophthalmology and Infectious Disease, who recommended outpatient followup. Outpatient evaluation has been suggested. EXAM: Vitals are stable. CARDIOVASCULAR: S1, S2. Abdomen is soft. NERVOUS SYSTEM: No focal deficit. RIGHT EYE: Congestion. No visual difficulties. DISCHARGE ADVICE AND MEDICATIONS: 1. Diet is cardiac. 2. Activity limited until followup. 3. Follow up with Dr. Dodson in 2-[address] Moore as recommended. 4. Medications are: a. Campral 330 mg p.o. t.i.d. b. Vistaril 50 mg p.o. t.i.d. c. Lutein 60 mg p.o. daily. d. Claritin 10 mg p.o. daily. e. Lopressor 50 mg p.o. b.i.d. f. Omeprazole 20 mg daily. g. Seroquel 400mg q.h.s. h. Desyrel 200 mg q.h.s. i. Tylenol p.r.n. j. Keflex 500 mg p.o. every 6 hours for 10 days. k. Multivitamins 1 p.o. daily. l. Habitrol 21 daily. m. Bactrim DS 1 p.o. b.i.d. for 10 days. Once again, the patient will be discharged in stable condition with a guarded prognosis. MMODL / IJN: [id number] / MTDD
[2018-01-20] MEDS ORDERED: VANCOMYCIN TROUGH DUE 1 EACH MISC MISCELLANE ONE (05:00)
== END 2018-01-19 19:10 | disposition home or self-care (01) | DRG 121 ==
LOC: EC 13:04 → 3OBS 15:48 → OBSVTOIN 15:48 → 3OBS 01-18 23:13 → 3SUR 01-18 23:13
PROVIDERS: ADMIT Hospitalist; ATTEND Hospitalist
DX: H05.011 Cellulitis of right orbit (principal); L03.213 Periorbital cellulitis; H20.9 Unspecified iridocyclitis; H40.059 Ocular hypertension, unspecified eye; I10 Essential (primary) hypertension; F17.200 Nicotine dependence, unspecified, uncomplicated; J45.909 Unspecified asthma, uncomplicated; M19.90 Unspecified osteoarthritis, unspecified site; Z79.899 Other long term (current) drug therapy; Z82.3 Family history of stroke; Z82.49 Family history of ischemic heart disease and other diseases of the circulatory system; Z83.3 Family history of diabetes mellitus; Z84.1 Family history of disorders of kidney and ureter; F41.9 Anxiety disorder, unspecified; F32.9 Major depressive disorder, single episode, unspecified; H05.20 Unspecified exophthalmos; H00.013 Hordeolum externum right eye, unspecified eyelid
CPT/HCPCS: 36415; 70481; 70543; 80048; 80053; 80306; 81003; 83605; 85025; 85610; 87040; 87070; 87086; 87205; 99284

== ENCOUNTER → 2019-02-09 | Outpatient (CLI) | payer BC ==
--- NOTE | 2019-02-09 11:57 | CT ---
EXAMINATION TYPE: CT abdomen pelvis w con DATE OF EXAM: 02/09/2019 COMPARISON: None HISTORY: Diarrhea with bright blood in stools CT DLP: 1452.2 mGycm CONTRAST: CT scan of the abdomen and pelvis is performed with Oral Contrast and with IV Contrast, patient injec julio c with 100 mL of Isovue 300. FINDINGS: LUNG BASES-: No visible nodule. No infiltrate. LIVER/GB: No calcified gallstones. No space occupying hepatic lesion. Biliary tree is of normal ca liber. PANCREAS: No inflammation. No distinct mass. SPLEEN: No splenic enlargement. No lesion seen. ADRENALS: No nodule. No thickening. KIDNEYS/BLADDER: No hydronephrosis. No nephrolithiasis. No distinct renal mass. Urinary bladder g rossly unremarkable. BOWEL: Normal appendix. There is wall thickening noted to involve the descending colon through the r ectum which may reflect ulcerative colitis. Nonspecific colitis also considered. Correlate clinically . Remaining bowel loops are within normal limits. GENITAL ORGANS: No gross abnormality. LYMPH NODES: No greater than 1cm abdominal or pelvic lymph nodes are appreciated. AORTA: No significant abnormality. OSSEOUS STRUCTURES: No significant abnormality is seen. OTHER: No significant additional abnormality is seen. IMPRESSION: 1. There is wall thickening noted to involve the descending colon through the rectum which may reflec t ulcerative colitis. Nonspecific colitis also considered. Correlate clinically.
== END | disposition home or self-care (01) ==
LOC: RADCTMAIN 09:47
PROVIDERS: ATTEND Family Medicine
DX: K52.9 Noninfective gastroenteritis and colitis, unspecified (principal); K63.89 Other specified diseases of intestine; R19.4 Change in bowel habit; Z88.5 Allergy status to narcotic agent
CPT/HCPCS: 74177; Q9967

== ENCOUNTER 2019-12-18 08:40 | Emergency (ER) | payer BC, OTHER ==
[2019-12-18] MEDS ORDERED: ALBUTEROL HFA INHALER INHALATION STA (09:10)
[2019-12-18 09:12] VITALS: RESP 16
[2019-12-18 09:20] LABS: Basophils % (A) 1 %; Eosinophils # (A) 0.2 k/uL (0-0.7); Eosinophils % (A) 3 %; HCT 43.4 % (39.0-53.0); HGB 14.3 gm/dL (13.0-17.5); Lymphocytes # (A) 2.1 k/uL (1.0-4.8); Lymphocytes % (A) 25 %; MCH 28.7 pg (25.0-35.0); MCHC 32.8 g/dL (31.0-37.0); MCV 87.4 fL (80.0-100.0); Mean Platelet Volume 7.6; Monocytes # (A) 0.5 k/uL (0-1.0); Monocytes % (A) 6 %; Neutrophils # (A) 5.3 k/uL (1.3-7.7); Neutrophils % (A) 63 %; Platelet Count 297 k/uL (150-450); RBC 4.97 m/uL (4.30-5.90); RDW 13.6 % (11.5-15.5); WBC 8.4 k/uL (3.8-10.6)
[2019-12-18 09:33] LABS: ALT 64 U/L (4-49); AST 45 U/L (17-59); African American GFR (CKD) >90 (>60 ml/min/1.73 sqM); Albumin 3.8 g/dL (3.5-5.0); Alkaline Phosphatase 77 U/L (38-126); Anion Gap 6 mmol/L; Blood Urea Nitrogen 8 mg/dL (9-20); C Reactive Protein 18.8 mg/L (<10.0); Calcium 8.7 mg/dL (8.4-10.2); Carbon Dioxide 20 mmol/L (22-30); Chloride 112 mmol/L (98-107); Glucose 148 mg/dL (74-99); LDH 434 U/L (313-618); Non-African American GFR(CKD) >90 (>60 ml/min/1.73 sqM); Sodium 138 mmol/L (137-145); Total Bilirubin 0.6 mg/dL (0.2-1.3); Total Protein 6.4 g/dL (6.3-8.2)
--- NOTE | 2019-12-18 09:35 | XR ---
EXAMINATION TYPE: XR chest 1V portable DATE OF EXAM: 12/18/2019 COMPARISON: Prior chest x-ray 01/06/2017 HISTORY: Covid pneumonia is suspected TECHNIQUE: Single frontal view of the chest is obtained. FINDINGS: Lung volumes are low. There is no focal air space opacity, pleural effusion, or pneumothora x seen. The cardiac silhouette size is within normal limits. The osseous structures are intact. IMPRESSION: No acute process. Follow-up as indicated PA and lateral chest x-ray
[2019-12-18 09:48] LABS: Appearance,Urine Clear (Clear); Bilirubin,Urine Negative (Negative); Blood,Urine Negative (Negative); Color,Urine Yellow; Glucose,Urine (UA) Negative (Negative); Ketones,Urine Negative (Negative); Leukocyte Esterase,Urine Negative (Negative); Nitrite,Urine Negative (Negative); Protein,Urine Trace (Negative); Specific Gravity,Urine 1.025 (1.001-1.035); Urobilinogen,Urine <2.0 mg/dL (<2.0)
--- NOTE | 2019-12-18 10:27 | ED ---
URI HPI - General Chief Complaint: Upper Respiratory Infection Stated Complaint: Cough,runny nose,chest pain Time Seen by Provider: 12/18/19 08:52 Source: patient Mode of arrival: ambulatory Limitations: no limitations - History of Present Illness Initial Comments: Patient is a 29-year-old male presenting to the emergency Department with complaints of a cough, shortness of breath, for the past 3 days. Patient states one of his close friends recently tested positive for Covid. He states he is a history of mild asthma as a child but has grown out of it. He does admit to being every day smoker. He is having some mild nausea. He denies any fever or chills. He does have some mild chest discomfort when he coughs. He denies any headaches, vomiting, diarrhea. He has no further complaints at this time. - Related Data Previous Rx's Medication Instructions Recorded Albuterol Inhaler [Ventolin Hfa 1 puff INHALATION RT-QID PRN #1 12/18/19 Inhaler] puff Allergies Allergy/AdvReac Type Severity Reaction Status Date / Time morphine Allergy Swelling Verified 12/18/19 09:56 Review of Systems ROS Statement: Those systems with pertinent positive or pertinent negative responses have been documented in the HPI. ROS Other: All systems not noted in ROS Statement are negative. Past Medical History Past Medical History: Asthma, Hypertension Additional Past Medical History / Comment(s): pt states he is supposed to be on lopressor fo HTN but has not gotten it filled. History of Any Multi-Drug Resistant Organisms: None Reported Past Surgical History: Orthopedic Surgery Additional Past Surgical History / Comment(s): Bilateral knee arthroscopies. Past Anesthesia/Blood Transfusion Reactions: No Reported Reaction Past Psychological History: Anxiety, Depression Smoking Status: Current every day smoker Past Alcohol Use History: Rare Past Drug Use History: None Reported - Past Family History Father History Unknown: Yes Mother Family Medical History: CVA/TIA, Diabetes Mellitus, Renal Disease Additional Family Medical History / Comment(s): Mother at the age of 45yrs from a heart attack. She had multiple medical problems including: heart disease, ESRD on dialysis, diabetic neuropathy and a CVA. General Exam - General Exam Comments Initial Comments: GENERAL: Patient is well-developed and well-nourished. Patient is nontoxic and in no acute distress. HEAD: Atraumatic, normocephalic. EYES: Pupils equal round and reactive to light, extraocular movements intact, sclera anicteric, conjunctiva are normal. Eyelids were unremarkable. ENT: TMs normal, nares patent, oropharynx clear without exudates. Moist mucous membranes. NECK: Normal range of motion, supple without lymphadenopathy or JVD. LUNGS: Unlabored respirations. Breath sounds clear to auscultation bilaterally and e qual. No wheezes rales or rhonchi. HEART: Regular rate and rhythm without murmurs, rubs or gallops. ABDOMEN: Soft, nontender, normoactive bowel sounds. No guarding, no rebound. No masses appreciated. : Deferred MUSCULOSKELETAL: Normal extremities with adequate strength and normal range of motion, no pitting or edema. No clubbing or cyanosis. NEUROLOGICAL: Patient is alert and oriented x 3. Motor and sensory are also intact. Normal speech, normal gait. Symmetrical smile. PSYCH: Normal mood, normal affect. SKIN: Warm, Dry, normal turgor, no rashes or lesions noted. Limitations: no limitations Course Vital Signs 12/18/19 12/18/19 12/18/19 08:45 09:09 11:14 Temperature 99.1 F 98.8 F Pulse Rate 101 H 84 Respiratory 18 16 16 Rate Blood Pressure 141/84 124/74 O2 Sat by Pulse 97 98 Oximetry Medical Decision Making - Medical Decision Making Patient 29-year-old male here for shortness of breath, cough 3 days. Positive contact with COVID positive friend. Vital signs are stable upon arrival. Exam is unremarkable. Labs shows a normal white count, d-dimer is normal, lactic acid is normal at 1.3. Urine shows no evidence of infection. Chest x-ray shows no evidence of infection or acute process. Patient was given albuterol inhaler. I discussed these findings with the patient. This is most likely a viral illness, his Covid testing is pending. Patient will self isolate until results are confirmed. Patient can take Tylenol as needed for discomfort. I will prescribe an inhaler to use as needed for shortness of breath. He will follow up with his PCP. Patient is in agreement with this plan of care. Return parameters were discussed with the patient he verbalizes understanding. Case discussed with Dr. Kaur. - Lab Data Result diagrams: 12/18/19 09:13 12/18/19 09:13 Lab Results 12/18/19 12/18/19 12/18/19 Range/Units 09:13 09:13 09:13 WBC 8.4 (3.8-10.6) k/uL RBC 4.97 (4.30-5.90) m/uL Hgb 14.3 (13.0-17.5) gm/dL Hct 43.4 (39.0-53.0) % MCV 87.4 (80.0-100.0) fL MCH 28.7 (25.0-35.0) pg MCHC 32.8 (31.0-37.0) g/dL RDW 13.6 (11.5-15.5) % Plt Count 297 (150-450) k/uL Neutrophils % 63 % Lymphocytes % 25 % Monocytes % 6 % Eosinophils % 3 % Basophils % 1 % Neutrophils # 5.3 (1.3-7.7) k/uL Lymphocytes # 2.1 (1.0-4.8) k/uL Monocytes # 0.5 (0-1.0) k/uL Eosinophils # 0.2 (0-0.7) k/uL Basophils # 0.0 (0-0.2) k/uL D-Dimer 0.37 (<0.60) mg/L FEU Sodium 138 (137-145) mmol/L Potassium 4.0 (3.5-5.1) mmol/L Chloride 112 H (98-107) mmol/L Carbon Dioxide 20 L (22-30) mmol/L Anion Gap 6 mmol/L BUN 8 L (9-20) mg/dL Creatinine 0.66 (0.66-1.25) mg/dL Est GFR (CKD-EPI)AfAm >90 (>60 ml/min/1.73 sqM) Est GFR (CKD-EPI)NonAf >90 (>60 ml/min/1.73 sqM) Glucose 148 H (74-99) mg/dL Plasma Lactic Acid Mansoor (0.7-2.0) mmol/L Calcium 8.7 (8.4-10.2) mg/dL Magnesium 2.0 (1.6-2.3) mg/dL Total Bilirubin 0.6 (0.2-1.3) mg/dL AST 45 (17-59) U/L ALT 64 H (4-49) U/L Alkaline Phosphatase 77 (38-126) U/L Lactate Dehydrogenase 434 (313-618) U/L C-Reactive Protein 18.8 H (<10.0) mg/L Total Protein 6.4 (6.3-8.2) g/dL Albumin 3.8 (3.5-5.0) g/dL Urine Color Urine Appearance (Clear) Urine pH (5.0-8.0) Ur Specific Hanson (1.001-1.035) Urine Protein (Negative) Urine Glucose (UA) (Negative) Urine Ketones (Negative) Urine Blood (Negative) Urine Nitrite (Negative) Urine Bilirubin (Negative) Urine Urobilinogen (<2.0) mg/dL Ur Leukocyte Esterase (Negative) 12/18/19 12/18/19 Range/Units 09:13 09:38 WBC (3.8-10.6) k/uL RBC (4.30-5.90) m/uL Hgb (13.0-17.5) gm/dL Hct (39.0-53.0) % MCV (80.0-100.0) fL MCH (25.0-35.0) pg MCHC (31.0-37.0) g/dL RDW (11.5-15.5) % Plt Count (150-450) k/uL Neutrophils % % Lymphocytes % % Monocytes % % Eosinophils % % Basophils % % Neutrophils # (1.3-7.7) k/uL Lymphocytes # (1.0-4.8) k/uL Monocytes # (0-1.0) k/uL Eosinophils # (0-0.7) k/uL Basophils # (0-0.2) k/uL D-Dimer (<0.60) mg/L FEU Sodium (137-145) mmol/L Potassium (3.5-5.1) mmol/L Chloride (98-107) mmol/L Carbon Dioxide (22-30) mmol/L Anion Gap mmol/L BUN (9-20) mg/dL Creatinine (0.66-1.25) mg/dL Est GFR (CKD-EPI)AfAm (>60 ml/min/1.73 sqM) Est GFR (CKD-EPI)NonAf (>60 ml/min/1.73 sqM) Glucose (74-99) mg/dL Plasma Lactic Acid Mansoor 1.3 (0.7-2.0) mmol/L Calcium (8.4-10.2) mg/dL Magnesium (1.6-2.3) mg/dL Total Bilirubin (0.2-1.3) mg/dL AST (17-59) U/L ALT (4-49) U/L Alkaline Phosphatase (38-126) U/L Lactate Dehydrogenase (313-618) U/L C-Reactive Protein (<10.0) mg/L Total Protein (6.3-8.2) g/dL Albumin (3.5-5.0) g/dL Urine Color Yellow Urine Appearance Clear (Clear) Urine pH 6.0 (5.0-8.0) Ur Specific Hanson 1.025 (1.001-1.035) Urine Protein Trace H (Negative) Urine Glucose (UA) Negative (Negative) Urine Ketones Negative (Negative) Urine Blood Negative (Negative) Urine Nitrite Negative (Negative) Urine Bilirubin Negative (Negative) Urine Urobilinogen <2.0 (<2.0) mg/dL Ur Leukocyte Esterase Negative (Negative) - EKG Data EKG Comments: Normal sinus rhythm, normal ECG, no signs of acute ischemia, ventricular rate 94, KS interval 164, QT 356. Disposition Clinical Impression: Viral infection Disposition: HOME SELF-CARE Condition: Stable Instructions (If sedation given, give patient instructions): Upper Respiratory Infection (ED) Additional Instructions: Please return to the Emergency Department if symptoms worsen or any other concerns. Use albuterol inhaler as needed for shortness of breath. Self isolating until COVID test is known, pendning at this time. Follow-up with PCP. Prescriptions: Albuterol Inhaler [Ventolin Hfa Inhaler] 1 puff INHALATION RT-QID PRN #1 puff PRN Reason: Shortness Of Breath Is patient prescribed a controlled substance at d/c from ED?: No Referrals: None,Stated [Primary Care Provider] - 1-2 days
[2019-12-18 11:14] VITALS: BP 124/74; PULSE 84; TEMP 98.8
[2019-12-18 16:49] LABS: Ferritin 307.1 ng/mL (22.0-322.0)
== END 2019-12-18 11:14 | disposition home or self-care (01) ==
LOC: EC 08:40
DX: B34.9 Viral infection, unspecified (principal); F17.200 Nicotine dependence, unspecified, uncomplicated; Z20.828 Contact with and (suspected) exposure to other viral communicable diseases; Z88.5 Allergy status to narcotic agent
CPT/HCPCS: 36415; 94640; 93005; 85379; 80053; 82728; 83605; 83615; 83735; 85025; 86140; 81003; 84145; 71045; 99284; U0003

== ENCOUNTER → 2020-06-05 | Outpatient (CLI) | payer BC, OTHER | END | disposition home or self-care (01) | LOC: LABWHC1 14:43 | PROVIDERS: ATTEND Emergency Medicine | DX: Z20.828 Contact with and (suspected) exposure to other viral communicable diseases (principal) | CPT/HCPCS: U0003; C9803 ==

== ENCOUNTER 2020-07-30 08:38 | Emergency (ER) | payer BC, OTHER ==
[2020-07-30 08:44] VITALS: RESP 18
[2020-07-30] MEDS ORDERED: SODIUM CHLORIDE 0.9% 1,000 ML IV ONE (08:57)
[2020-07-30 09:40] VITALS: TEMP 97.9
[2020-07-30 09:58] LABS: Basophils % (A) 1 %; Eosinophils # (A) 0.2 k/uL (0-0.7); Eosinophils % (A) 2 %; HCT 49.6 % (39.0-53.0); HGB 17.2 gm/dL (13.0-17.5); Lymphocytes # (A) 2.3 k/uL (1.0-4.8); Lymphocytes % (A) 32 %; MCH 29.5 pg (25.0-35.0); MCHC 34.7 g/dL (31.0-37.0); MCV 85.2 fL (80.0-100.0); Mean Platelet Volume 7.4; Monocytes # (A) 0.4 k/uL (0-1.0); Monocytes % (A) 5 %; Neutrophils # (A) 4.2 k/uL (1.3-7.7); Neutrophils % (A) 58 %; Platelet Count 322 k/uL (150-450); RBC 5.82 m/uL (4.30-5.90); RDW 13.2 % (11.5-15.5); WBC 7.1 k/uL (3.8-10.6)
[2020-07-30 10:09] LABS: ALT 98 U/L (4-49); AST 96 U/L (17-59); Acetaminophen <10.0 ug/mL; African American GFR (CKD) >90 (>60 ml/min/1.73 sqM); Albumin 4.6 g/dL (3.5-5.0); Alkaline Phosphatase 109 U/L (38-126); Anion Gap 10 mmol/L; Blood Urea Nitrogen 7 mg/dL (9-20); Calcium 9.3 mg/dL (8.4-10.2); Carbon Dioxide 23 mmol/L (22-30); Chloride 106 mmol/L (98-107); Glucose 104 mg/dL (74-99); Lipase 190 U/L (23-300); Non-African American GFR(CKD) >90 (>60 ml/min/1.73 sqM); Potassium 4.2 mmol/L (3.5-5.1); Salicylate <1.0 mg/dL; Sodium 139 mmol/L (137-145)
[2020-07-30 10:11] LABS: Amphetamine Screen,Urine Not Detected (NotDetected); Barbiturate Screen,Urine Not Detected (NotDetected); Benzodiazepines Screen,Urine Not Detected (NotDetected); Cocaine Screen,Urine Not Detected (NotDetected); Methadone Screen, Urine Not Detected (NotDetected); Opiate Screen,Urine Not Detected (NotDetected); Oxycodone Screen, Urine Not Detected (NotDetected); Phencyclidine Screen,Urine Not Detected (NotDetected); Tricyclic Antidepressant,Urine Not Detected (NotDetected); Urn Cannabinoid Scrn Detected (NotDetected)
--- NOTE | 2020-07-30 10:42 | ED ---
Recheck HPI - General Chief Complaint: Recheck/Abnormal Lab/Rx Stated Complaint: lab recheck Time Seen by Provider: 07/30/20 08:48 Source: patient Mode of arrival: ambulatory Limitations: no limitations - History of Present Illness Initial Comments: 30-year-old male presenting today for chief complaint of nausea vomiting per patient states 2 nights ago he used "Blue Boy" a nail adhesive that he sniffs before sex. Patient states that he actually snipped a small amount into his nose he states he had nasal congestion and was gagging for a few minutes after. Patient states that the symptoms subsided. Patient states the next day he had some vomiting he had some loose stools. He denies a fevers a dull pain chest pain shortness of breath he states he had associated nausea and chills no fevers, cough. Patient has no additional complaints but states that he continues to have occasional episodes of vomiting. Patient was concerned this was secondary to the inhalation of Blue Boy nad presented to the ER. - Related Data Home Medications Medication Instructions Recorded Confirmed No Known Home Medications 07/30/20 07/30/20 Allergies Allergy/AdvReac Type Severity Reaction Status Date / Time morphine Allergy Swelling Verified 07/30/20 09:53 Review of Systems ROS Statement: Those systems with pertinent positive or pertinent negative responses have been documented in the HPI. ROS Other: All systems not noted in ROS Statement are negative. Past Medical History Past Medical History: Asthma, Hypertension Additional Past Medical History / Comment(s): pt states he is supposed to be on lopressor fo HTN but has not gotten it filled. History of Any Multi-Drug Resistant Organisms: None Reported Past Surgical History: Orthopedic Surgery Additional Past Surgical History / Comment(s): Bilateral knee arthroscopies. Past Anesthesia/Blood Transfusion Reactions: No Reported Reaction Past Psychological History: Anxiety, Depression Smoking Status: Current every day smoker Past Alcohol Use History: Daily Past Drug Use History: Marijuana - Past Family History Father History Unknown: Yes Mother Family Medical History: CVA/TIA, Diabetes Mellitus, Renal Disease Additional Family Medical History / Comment(s): Mother at the age of 45yrs from a heart attack. She had multiple medical problems including: heart disease, ESRD on dialysis, diabetic neuropathy and a CVA. General Exam - General Exam Comments Initial Comments: General: The patient is awake and alert, in no distress Eye: Pupils are equal, round and reactive to light, extra-ocular movements are intact. No nystagmus. There is normal conjunctiva bilaterally. No signs of icterus. Ears, nose, mouth and throat: There are moist mucous membranes and no oral lesions. Neck: The neck is supple, there is no tenderness or JVD. Cardiovascular: There is a regular rate and rhythm. No murmur, rub or gallop is appreciated. Respiratory: Lungs are clear to auscultation, respirations are non-labored, breath sounds are equal. No wheezes, stridor, rales, or rhonchi. Gastrointestinal: Soft, non-distended, non-tender abdomen without masses or o rganomegaly noted. There is no rebound or guarding present. Musculoskeletal: Normal ROM, no tenderness. Strength 5/5. Sensation intact. Pulses equal bilaterally 2+. Neurological: A&O x 3. CN II-XII intact grossly, There are no obvious motor or sensory deficits. Coordination appears grossly intact. Speech is normal. Skin: Skin is warm and dry and no rashes or lesions are noted. Psychiatric: Cooperative, appropriate mood & affect, normal judgment. Limitations: no limitations Course Vital Signs 07/30/20 07/30/20 07/30/20 08:40 09:39 10:56 Temperature 99.1 F 97.9 F 97.9 F Pulse Rate 100 81 97 Respiratory 18 18 18 Rate Blood Pressure 169/101 156/92 148/86 O2 Sat by Pulse 98 98 98 Oximetry Medical Decision Making - Medical Decision Making poison control state they have no specific recommendations-aside from laboratory studies/drug studies but will research and call back if they find out more information. Patient symptoms of vomiting began 1 day after inhalation. they seem disconnected. especially with loose stools. patient afebrile. no white count. no tenderness on abdominal exam. at this time i feel patient is stable for discharge with pcp f/u. discontinuation of this medications. Dr Orr agreeable to this care plan and discharge. - Lab Data Result diagrams: 07/30/20 09:35 07/30/20 09:35 Lab Results 07/30/20 07/30/20 07/30/20 Range/Units 09:35 09:35 09:35 WBC 7.1 (3.8-10.6) k/uL RBC 5.82 (4.30-5.90) m/uL Hgb 17.2 (13.0-17.5) gm/dL Hct 49.6 (39.0-53.0) % MCV 85.2 (80.0-100.0) fL MCH 29.5 (25.0-35.0) pg MCHC 34.7 (31.0-37.0) g/dL RDW 13.2 (11.5-15.5) % Plt Count 322 (150-450) k/uL MPV 7.4 Neutrophils % 58 % Lymphocytes % 32 % Monocytes % 5 % Eosinophils % 2 % Basophils % 1 % Neutrophils # 4.2 (1.3-7.7) k/uL Lymphocytes # 2.3 (1.0-4.8) k/uL Monocytes # 0.4 (0-1.0) k/uL Eosinophils # 0.2 (0-0.7) k/uL Basophils # 0.0 (0-0.2) k/uL Sodium 139 (137-145) mmol/L Potassium 4.2 (3.5-5.1) mmol/L Chloride 106 (98-107) mmol/L Carbon Dioxide 23 (22-30) mmol/L Anion Gap 10 mmol/L BUN 7 L (9-20) mg/dL Creatinine 0.81 (0.66-1.25) mg/dL Est GFR (CKD-EPI)AfAm >90 (>60 ml/min/1.73 sqM) Est GFR (CKD-EPI)NonAf >90 (>60 ml/min/1.73 sqM) Glucose 104 H (74-99) mg/dL Calcium 9.3 (8.4-10.2) mg/dL Total Bilirubin 1.0 (0.2-1.3) mg/dL AST 96 H (17-59) U/L ALT 98 H (4-49) U/L Alkaline Phosphatase 109 (38-126) U/L Troponin I (0.000-0.034) ng/mL Total Protein 8.0 (6.3-8.2) g/dL Albumin 4.6 (3.5-5.0) g/dL Lipase 190 (23-300) U/L Salicylates <1.0 mg/dL Urine Opiates Screen Not Detected (NotDetected) Ur Oxycodone Screen Not Detected (NotDetected) Urine Methadone Screen Not Detected (NotDetected) Ur Propoxyphene Screen Not Detected (NotDetected) Acetaminophen <10.0 ug/mL Ur Barbiturates Screen Not Detected (NotDetected) U Tricyclic Antidepress Not Detected (NotDetected) Ur Phencyclidine Scrn Not Detected (NotDetected) Ur Amphetamines Screen Not Detected (NotDetected) U Methamphetamines Scrn Not Detected (NotDetected) U Benzodiazepines Scrn Not Detected (NotDetected) Urine Cocaine Screen Not Detected (NotDetected) U Marijuana (THC) Screen Detected H (NotDetected) 07/30/20 Range/Units 09:35 WBC (3.8-10.6) k/uL RBC (4.30-5.90) m/uL Hgb (13.0-17.5) gm/dL Hct (39.0-53.0) % MCV (80.0-100.0) fL MCH (25.0-35.0) pg MCHC (31.0-37.0) g/dL RDW (11.5-15.5) % Plt Count (150-450) k/uL MPV Neutrophils % % Lymphocytes % % Monocytes % % Eosinophils % % Basophils % % Neutrophils # (1.3-7.7) k/uL Lymphocytes # (1.0-4.8) k/uL Monocytes # (0-1.0) k/uL Eosinophils # (0-0.7) k/uL Basophils # (0-0.2) k/uL Sodium (137-145) mmol/L Potassium (3.5-5.1) mmol/L Chloride (98-107) mmol/L Carbon Dioxide (22-30) mmol/L Anion Gap mmol/L BUN (9-20) mg/dL Creatinine (0.66-1.25) mg/dL Est GFR (CKD-EPI)AfAm (>60 ml/min/1.73 sqM) Est GFR (CKD-EPI)NonAf (>60 ml/min/1.73 sqM) Glucose (74-99) mg/dL Calcium (8.4-10.2) mg/dL Total Bilirubin (0.2-1.3) mg/dL AST (17-59) U/L ALT (4-49) U/L Alkaline Phosphatase (38-126) U/L Troponin I <0.012 (0.000-0.034) ng/mL Total Protein (6.3-8.2) g/dL Albumin (3.5-5.0) g/dL Lipase (23-300) U/L Salicylates mg/dL Urine Opiates Screen (NotDetected) Ur Oxycodone Screen (NotDetected) Urine Methadone Screen (NotDetected) Ur Propoxyphene Screen (NotDetected) Acetaminophen ug/mL Ur Barbiturates Screen (NotDetected) U Tricyclic Antidepress (NotDetected) Ur Phencyclidine Scrn (NotDetected) Ur Amphetamines Screen (NotDetected) U Methamphetamines Scrn (NotDetected) U Benzodiazepines Scrn (NotDetected) Urine Cocaine Screen (NotDetected) U Marijuana (THC) Screen (NotDetected) Disposition Clinical Impression: Vomiting, Change in stool, Chemical exposure Disposition: HOME SELF-CARE Condition: Good Instructions (If sedation given, give patient instructions): Enteritis (ED) Additional Instructions: Please use medication as discussed. Please follow-up with family doctor in the next 2 days. Please return to emergency room if the symptoms increase or worsen or for any other concerns. Is patient prescribed a controlled substance at d/c from ED?: No Referrals: None,Stated [Primary Care Provider] - [facility] - 1-2 days Time of Disposition: 10:41
[2020-07-30 10:58] VITALS: BP 148/86; PULSE 97
== END 2020-07-30 10:57 | disposition home or self-care (01) ==
LOC: EC 08:38
DX: R11.10 Vomiting, unspecified (principal); R19.4 Change in bowel habit; F17.200 Nicotine dependence, unspecified, uncomplicated; I10 Essential (primary) hypertension; J45.909 Unspecified asthma, uncomplicated; Z77.098 Contact with and (suspected) exposure to other hazardous, chiefly nonmedicinal, chemicals
CPT/HCPCS: 36415; 80053; 80143; 80179; 80306; 83690; 84484; 85025; 93005

== ENCOUNTER 2020-10-10 17:50 | Emergency (ER) | payer BC, OTHER ==
[2020-10-10 17:56] VITALS: TEMP 99.2
[2020-10-10] MEDS ORDERED: ACETAMINOPHEN TAB 500 MG TAB PO STA (18:14)
[2020-10-10] MEDS ORDERED: KETOROLAC 15 MG/ML 1 ML VIAL IM STA (18:14)
--- NOTE | 2020-10-10 19:11 | ED ---
General Adult HPI - General Chief complaint: Upper Respiratory Infection Stated complaint: Headache,Cough,Chills Time Seen by Provider: 10/10/20 18:06 Source: patient, RN notes reviewed, old records reviewed Mode of arrival: ambulatory Limitations: no limitations - History of Present Illness Initial comments: 30-year-old male presenting for evaluation of myalgia, fever and chills, coughing congestion. Patient states that he received his second Covid vaccine 3 days ago. Approximate 2 days ago he began having his symptoms. He denies any known contact with anyone with coronavirus. He does report some cough and mild dyspnea as well. He has diffuse myalgia. Any nasal congestion. He denies central chest pain or abdominal pain. No significant vomiting or diarrhea. He is otherwise healthy. - Related Data Home Medications Medication Instructions Recorded Confirmed No Known Home Medications 07/30/20 10/10/20 Allergies Allergy/AdvReac Type Severity Reaction Status Date / Time morphine Allergy Swelling/Shortness Verified 10/10/20 18:39 of Breath Review of Systems ROS Statement: Those systems with pertinent positive or pertinent negative responses have been documented in the HPI. ROS Other: All systems not noted in ROS Statement are negative. Past Medical History Past Medical History: Asthma, Hypertension Additional Past Medical History / Comment(s): pt states he is supposed to be on lopressor fo HTN but has not gotten it filled. History of Any Multi-Drug Resistant Organisms: None Reported Past Surgical History: Orthopedic Surgery Additional Past Surgical History / Comment(s): Bilateral knee arthroscopies. Past Anesthesia/Blood Transfusion Reactions: No Reported Reaction Past Psychological History: Anxiety, Depression Smoking Status: Current every day smoker Past Alcohol Use History: Daily Past Drug Use History: Marijuana - Past Family History Father History Unknown: Yes Mother Family Medical History: CVA/TIA, Diabetes Mellitus, Renal Disease Additional Family Medical History / Comment(s): Mother at the age of 45yrs from a heart attack. She had multiple medical problems including: heart disease, ESRD on dialysis, diabetic neuropathy and a CVA. General Exam Limitations: no limitations General appearance: alert, in no apparent distress Head exam: Present: atraumatic, normocephalic Eye exam: Present: normal appearance, PERRL ENT exam: Present: mucous membranes dry Neck exam: Present: normal inspection. Absent: tenderness, meningismus Respiratory exam: Present: normal lung sounds bilaterally, respiratory distress Cardiovascular Exam: Present: normal rhythm, tachycardia GI/Abdominal exam: Present: soft. Absent: distended, tenderness, guarding, rebound Extremities exam: Present: normal inspection, normal capillary refill. Absent: pedal edema Neurological exam: Present: alert, oriented X3, CN II-XII intact. Absent: motor sensory deficit Psychiatric exam: Present: normal affect, normal mood Skin exam: Present: warm, dry, intact. Absent: cyanosis, diaphoretic Course Vital Signs 10/10/20 17:53 Temperature 99.2 F Pulse Rate 111 H Respiratory 20 Rate Blood Pressure 143/79 O2 Sat by Pulse 95 Oximetry Medical Decision Making - Medical Decision Making 30-year-old male presenting with concern for coronavirus. He had received his second vaccine and is having symptoms including myalgia, fever chills, cough. Patient test negative for coronavirus in the emergency department, symptoms likely related to second vaccine. He will take Tylenol Motrin for fever and myalgias at home. He will follow-up with his primary care physician. Will return as needed. - Lab Data Lab Results 10/10/20 Range/Units 18:31 Coronavirus (PCR) Not Detected (Not Detectd) Disposition Clinical Impression: Vaccine reaction Disposition: HOME SELF-CARE Condition: Good Instructions (If sedation given, give patient instructions): Upper Respiratory Infection (ED), Viral Syndrome (ED) Is patient prescribed a controlled substance at d/c from ED?: No Referrals: None,Stated [Primary Care Provider] - 1-2 days Sourav Golden MD [REFERRING] - 1-2 days Time of Disposition: 19:22
[2020-10-10 19:38] VITALS: BP 143/90; PULSE 100; RESP 17
== END 2020-10-10 19:39 | disposition home or self-care (01) ==
LOC: EC 17:50
DX: R51.9 Headache, unspecified (principal); R05 Cough; R50.83 Postvaccination fever; R09.81 Nasal congestion; M79.10 Myalgia, unspecified site; T50.B95A Adverse effect of other viral vaccines, initial encounter; J45.909 Unspecified asthma, uncomplicated; I10 Essential (primary) hypertension; F17.200 Nicotine dependence, unspecified, uncomplicated; F41.9 Anxiety disorder, unspecified; F32.9 Major depressive disorder, single episode, unspecified; F12.90 Cannabis use, unspecified, uncomplicated; Z20.822 Contact with and (suspected) exposure to COVID-19
CPT/HCPCS: 87635; 99284; 96372; J1885; 99283

== ENCOUNTER 2020-12-27 22:22 | Emergency (ER) | payer BC, OTHER ==
[2020-12-27 22:34] VITALS: BP 135/83; PULSE 104; RESP 20; TEMP 98
[2020-12-27] MEDS ORDERED: HYDROmorphone 1 MG/ML 1 ML SYRINGE IM STA (22:46)
--- NOTE | 2020-12-27 23:10 | XR ---
EXAMINATION TYPE: XR foot complete LT DATE OF EXAM: 12/27/2020 COMPARISON: NONE HISTORY: Foot pain TECHNIQUE: 3 views FINDINGS: Metatarsals appear intact. The toes appear intact. I see no fracture nor dislocation. IMPRESSION: Negative left foot exam. No fracture.
--- NOTE | 2020-12-27 23:18 | ED ---
Lower Extremity Injury HPI - General Chief Complaint: Extremity Injury, Lower Stated Complaint: Lft ankle injury Time Seen by Provider: 12/27/20 22:37 Source: patient, RN notes reviewed Mode of arrival: wheelchair Limitations: no limitations - History of Present Illness Initial Comments: Patient is a 30-year-old male that presents to emergency department complaining of left foot and ankle pain. He notes that he missed a step and landed on his left foot causing significant pain. She appeared to be in moderate amounts of distress and pain while sitting in bed during exam and interview. He noted the pain was approximately a 10 out of 10 with no relief. He said "I believe it's broken sprained or fractured in several spots". Patient denied any other issues or complaints at this time. He denied any chest pain shortness breath headache nausea vomiting diarrhea constipation fever fatigue chills. - Related Data Previous Rx's Medication Instructions Recorded Ibuprofen [Motrin] 800 mg PO Q6HR #30 tab 12/27/20 Allergies Allergy/AdvReac Type Severity Reaction Status Date / Time morphine Allergy Swelling/Shortness Verified 12/27/20 22:33 of Breath Review of Systems ROS Statement: Those systems with pertinent positive or pertinent negative responses have been documented in the HPI. ROS Other: All systems not noted in ROS Statement are negative. Past Medical History Past Medical History: Asthma, Hypertension Additional Past Medical History / Comment(s): pt states he is supposed to be on lopressor fo HTN but has not gotten it filled. History of Any Multi-Drug Resistant Organisms: None Reported Past Surgical History: Orthopedic Surgery Additional Past Surgical History / Comment(s): Bilateral knee arthroscopies. Past Anesthesia/Blood Transfusion Reactions: No Reported Reaction Past Psychological History: Anxiety, Depression Smoking Status: Current every day smoker Past Alcohol Use History: Daily Past Drug Use History: Marijuana - Past Family History Father History Unknown: Yes Mother Family Medical History: CVA/TIA, Diabetes Mellitus, Renal Disease Additional Family Medical History / Comment(s): Mother at the age of 45yrs from a heart attack. She had multiple medical problems including: heart disease, ESRD on dialysis, diabetic neuropathy and a CVA. General Exam Limitations: no limitations General appearance: alert, in no apparent distress, other (Patient's pain response was on proportional to the exam, light touch to the skin patient was saying was 10 out of 10 pain.) Head exam: Present: atraumatic, normocephalic, normal inspection Eye exam: Present: normal appearance, PERRL, EOMI. Absent: scleral icterus, conjunctival injection, periorbital swelling Neck exam: Present: normal inspection Respiratory exam: Present: normal lung sounds bilaterally. Absent: respiratory distress, wheezes, rales, rhonchi, stridor Cardiovascular Exam: Present: regular rate, normal rhythm, normal heart sounds. Absent: systolic murmur, diastolic murmur, rubs, gallop, clicks Left Ankle exam: Present: normal inspection, tenderness, swelling (Very minimal). Absent: full ROM (Secondary to pain and patient's unwillingness to attempt to move it.) Foot/Toe exam: Present: normal inspection, tenderness (Out of proportion for amount of pressure used to palpate.). Absent: full ROM (Secondary to pain and patient's unwillingness to attempt movement.), swelling Neurological exam: Present: alert, oriented X3 Psychiatric exam: Present: normal affect, normal mood Skin exam: Present: warm, dry, intact, normal color. Absent: rash Course Vital Signs 12/27/20 22:30 Temperature 98.0 F Pulse Rate 104 H Respiratory 20 Rate Blood Pressure 135/83 O2 Sat by Pulse 95 Oximetry Medical Decision Making - Medical Decision Making 30-year-old male complaining of left foot and ankle pain after missing a step on the stairs. 1 mg of Dilaudid, left foot x-ray ordered. Dilaudid ordered because patient is ALLERGIC to morphine. X-ray negative for any acute fractures or dislocations. Patient most likely has a ankle/foot sprain. Patient can discharge home with follow-up to primary care and orthopedics as needed. Case discussed with Dr. Sifeuntes - Radiology Data Radiology results: report reviewed, image reviewed Left foot x-ray: Negative left foot exam. No fracture. Disposition Clinical Impression: Left ankle sprain, Sprain of left foot Disposition: HOME SELF-CARE Condition: Stable Instructions (If sedation given, give patient instructions): Ankle Sprain (ED) Additional Instructions: Please return to the Emergency Department if symptoms worsen or any other concerns. Follow-up with primary care as needed the next 1-2 days. Take Motrin as prescribed. Use as tolerated, avoid any excessive weightbearing for the next several days. Rest ice compress elevate. Is patient prescribed a controlled substance at d/c from ED?: No Referrals: None,Stated [Primary Care Provider] - 1-2 days Time of Disposition: 23:17
== END 2020-12-27 23:46 | disposition home or self-care (01) ==
LOC: EC 22:22
DX: S93.402A Sprain of unspecified ligament of left ankle, initial encounter (principal); S93.602A Unspecified sprain of left foot, initial encounter; J45.909 Unspecified asthma, uncomplicated; I10 Essential (primary) hypertension; F32.9 Major depressive disorder, single episode, unspecified; F41.9 Anxiety disorder, unspecified; F17.200 Nicotine dependence, unspecified, uncomplicated; F12.90 Cannabis use, unspecified, uncomplicated; W10.9XXA Fall (on) (from) unspecified stairs and steps, initial encounter
CPT/HCPCS: 96372; 99283

== ENCOUNTER 2021-01-09 12:53 | Emergency (ER) | payer BC, OTHER ==
[2021-01-09 13:07] VITALS: BP 144/94; PULSE 91; RESP 18; TEMP 98.6
[2021-01-09] MEDS ORDERED: SODIUM CHLORIDE 0.9% 500 ML 500 ML IV STA (13:35)
[2021-01-09 14:03] LABS: Basophils # (A) 0.1 k/uL (0-0.2); Basophils % (A) 1 %; Eosinophils # (A) 0.3 k/uL (0-0.7); Eosinophils % (A) 4 %; HCT 48.6 % (39.0-53.0); HGB 16.5 gm/dL (13.0-17.5); Lymphocytes # (A) 2.2 k/uL (1.0-4.8); Lymphocytes % (A) 28 %; MCH 30.8 pg (25.0-35.0); MCV 90.6 fL (80.0-100.0); Mean Platelet Volume 7.5; Monocytes # (A) 0.4 k/uL (0-1.0); Monocytes % (A) 5 %; Neutrophils % (A) 62 %; Platelet Count 283 k/uL (150-450); RBC 5.36 m/uL (4.30-5.90); RDW 13.7 % (11.5-15.5); WBC 8.1 k/uL (3.8-10.6)
[2021-01-09 14:18] LABS: AST 83 U/L (17-59); African American GFR (CKD) >90 (>60 ml/min/1.73 sqM); Albumin 4.2 g/dL (3.5-5.0); Alkaline Phosphatase 98 U/L (38-126); Anion Gap 12 mmol/L; Blood Urea Nitrogen 5 mg/dL (9-20); Calcium 9.5 mg/dL (8.4-10.2); Carbon Dioxide 18 mmol/L (22-30); Chloride 110 mmol/L (98-107); Glucose 142 mg/dL (74-99); Non-African American GFR(CKD) >90 (>60 ml/min/1.73 sqM); Sodium 140 mmol/L (137-145); Total Protein 7.1 g/dL (6.3-8.2)
[2021-01-09 14:29] LABS: ALT 73 U/L (4-49)
--- NOTE | 2021-01-09 14:33 | CT ---
EXAMINATION TYPE: CT abdomen pelvis w con DATE OF EXAM: 01/09/2021 COMPARISON: 02/09/2019 HISTORY: 30-year-old male GI bleed, lower abd pain TECHNIQUE: Contiguous axial scanning of the abdomen and pelvis following administration of 100 ml Iso korin 300 IV contrast. Delayed images through the kidneys and coronal/sagittal reconstructions perform ed. CT DLP: 1526 mGycm Automated exposure control for dose reduction was used. FINDINGS: Heart normal size without pericardial effusion. Lung bases clear without pleural effusion. Liver enlarged measuring 20.3 cm with low attenuation. No focal liver lesion or biliary ductal dilata tion. Gallbladder, adrenal glands, kidneys, spleen, and pancreas within normal limits. No dilated small bowel, free fluid, or free air. Possible mild jejunal fold thickening in the left side of the abdomen. Scattered nonenlarged mesenteric lymph nodes. Normal appendix. No significant stool burden. Mild circumferential wall thickening mid to distal sigm oid and rectum. Bladder is collapsed. Prostate gland measures 4.0 cm wide. No abnormal fluid collection in the pelvis or pelvic lymphadenopathy. Bones: No osseous destructive process. IMPRESSION: 1. MILD CIRCUMFERENTIAL WALL THICKENING MID TO DISTAL SIGMOID AND RECTUM. NO SIGNIFICANT SURROUNDING INFLAMMATION. CORRELATE FOR NONSPECIFIC MILD INFECTIOUS OR INFLAMMATORY COLITIS. IBD IS IN THE DIFFER ENTIAL. 2. SOME OF THE LEFT ABDOMINAL JEJUNAL LOOPS APPEAR SLIGHTLY THICKENED WELL AND COULD REFLECT AN EN TERITIS. 3. 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
--- NOTE | 2021-01-09 14:44 | ED ---
GI Bleed HPI - General Chief complaint: GI Bleed Stated complaint: Bowel Discomfort Time Seen by Provider: 01/09/21 13:21 Source: patient Mode of arrival: ambulatory Limitations: no limitations - History of Present Illness Initial comments: 30-year-old male patient presents to the emergency department today for evaluation of lower abdominal pain and blood in his stool. Patient states he is having solid stool mixed with bright red blood. States he has had one episode daily for the last 3-4 days. He reports a burning pain to his lower abdomen. Denies fever or chills. States he has been nauseated but denies any vomiting. Patient states he has had her symptoms in the past but has not been able to be evaluated by GI due to the pandemic. Patient denies any recent rash, fever, chills, cough, shortness of breath, chest pain, nausea, vomiting, diarrhea, constipation, back pain, numbness, tingling, dizziness, weakness, hematuria, dysuria, urinary urgency, urinary frequency, headache, visual changes, or any other complaints. - Related Data Previous Rx's Medication Instructions Recorded Ibuprofen [Motrin] 800 mg PO Q6HR #30 tab 12/27/20 Ciprofloxacin HCl [Cipro] 500 mg PO Q12HR #14 tablet 01/09/21 Dicyclomine [Bentyl] 20 mg PO QID #12 tablet 01/09/21 metroNIDAZOLE [Flagyl] 500 mg PO QID #40 tab 01/09/21 Allergies Allergy/AdvReac Type Severity Reaction Status Date / Time morphine Allergy Swelling/Shortness Verified 01/09/21 13:08 of Breath Review of Systems ROS Statement: Those systems with pertinent positive or pertinent negative responses have been documented in the HPI. ROS Other: All systems not noted in ROS Statement are negative. Past Medical History Past Medical History: Asthma, Hypertension Additional Past Medical History / Comment(s): pt states he is supposed to be on lopressor fo HTN but has not gotten it filled. History of Any Multi-Drug Resistant Organisms: None Reported Past Surgical History: Orthopedic Surgery Additional Past Surgical History / Comment(s): Bilateral knee arthroscopies. Past Anesthesia/Blood Transfusion Reactions: No Reported Reaction Past Psychological History: Anxiety, Depression Smoking Status: Current every day smoker Past Alcohol Use History: Daily Past Drug Use History: Marijuana - Past Family History Father History Unknown: Yes Mother Family Medical History: CVA/TIA, Diabetes Mellitus, Renal Disease Additional Family Medical History / Comment(s): Mother at the age of 45yrs from a heart attack. She had multiple medical problems including: heart disease, ESRD on dialysis, diabetic neuropathy and a CVA. General Exam Limitations: no limitations General appearance: alert, in no apparent distress, other (This is a well- developed, well-nourished adult male patient in no acute distress. Vital signs upon presentation temperature 98.6F, pulse 91, respirations 18, blood pressure 144/94, pulse ox 99% on room air.) ENT exam: Present: normal exam, normal oropharynx, mucous membranes moist Respiratory exam: Present: normal lung sounds bilaterally. Absent: respiratory distress, wheezes, rales, rhonchi, stridor Cardiovascular Exam: Present: regular rate, normal rhythm, normal heart sounds. Absent: systolic murmur, diastolic murmur, rubs, gallop, clicks GI/Abdominal exam: Present: soft, tenderness (Left lower quadrant, suprapubic tenderness. ), normal bowel sounds. Absent: distended, guarding, rebound, rigid Neurological exam: Present: alert, oriented X3, CN II-XII intact Psychiatric exam: Present: normal affect, normal mood Skin exam: Present: warm, dry, intact, normal color. Absent: rash Course Vital Signs 01/09/21 13:04 Temperature 98.6 F Pulse Rate 91 Respiratory 18 Rate Blood Pressure 144/94 O2 Sat by Pulse 99 Oximetry Medical Decision Making - Medical Decision Making 30-year-old male patient presents to the emergency department today for evaluation of lower abdominal pain and blood in his stool. Physical examination did reveal left lower quadrant tenderness. Labs reviewed and are unremarkable. CT abdomen and pelvis is obtained and shows sigmoid and rectal wall thickening consistent with colitis possibly inflammatory versus infectious. He'll be started on Cipro and Flagyl discharge with pain medication. He is instructed to follow-up with the GI specialist for further evaluation as soon as possible. Return parameters were discussed in detail. He verbalizes understanding and agrees with this plan. Case discussed with my attending Dr. Stephen. - Lab Data Result diagrams: 01/09/21 13:50 01/09/21 13:50 Lab Results 01/09/21 01/09/21 01/09/21 Range/Units 13:50 13:50 13:50 WBC 8.1 (3.8-10.6) k/uL RBC 5.36 (4.30-5.90) m/uL Hgb 16.5 (13.0-17.5) gm/dL Hct 48.6 (39.0-53.0) % MCV 90.6 (80.0-100.0) fL MCH 30.8 (25.0-35.0) pg MCHC 34.0 (31.0-37.0) g/dL RDW 13.7 (11.5-15.5) % Plt Count 283 (150-450) k/uL MPV 7.5 Neutrophils % 62 % Lymphocytes % 28 % Monocytes % 5 % Eosinophils % 4 % Basophils % 1 % Neutrophils # 5.0 (1.3-7.7) k/uL Lymphocytes # 2.2 (1.0-4.8) k/uL Monocytes # 0.4 (0-1.0) k/uL Eosinophils # 0.3 (0-0.7) k/uL Basophils # 0.1 (0-0.2) k/uL APTT 22.3 (22.0-30.0) sec Sodium 140 (137-145) mmol/L Potassium 4.0 (3.5-5.1) mmol/L Chloride 110 H (98-107) mmol/L Carbon Dioxide 18 L (22-30) mmol/L Anion Gap 12 mmol/L BUN 5 L (9-20) mg/dL Creatinine 0.72 (0.66-1.25) mg/dL Est GFR (CKD-EPI)AfAm >90 (>60 ml/min/1.73 sqM) Est GFR (CKD-EPI)NonAf >90 (>60 ml/min/1.73 sqM) Glucose 142 H (74-99) mg/dL Plasma Lactic Acid Mansoor (0.7-2.0) mmol/L Calcium 9.5 (8.4-10.2) mg/dL Total Bilirubin 1.0 (0.2-1.3) mg/dL AST 83 H (17-59) U/L ALT 73 H (4-49) U/L Alkaline Phosphatase 98 (38-126) U/L Troponin I (0.000-0.034) ng/mL Total Protein 7.1 (6.3-8.2) g/dL Albumin 4.2 (3.5-5.0) g/dL 01/09/21 01/09/21 Range/Units 13:50 13:50 WBC (3.8-10.6) k/uL RBC (4.30-5.90) m/uL Hgb (13.0-17.5) gm/dL Hct (39.0-53.0) % MCV (80.0-100.0) fL MCH (25.0-35.0) pg MCHC (31.0-37.0) g/dL RDW (11.5-15.5) % Plt Count (150-450) k/uL MPV Neutrophils % % Lymphocytes % % Monocytes % % Eosinophils % % Basophils % % Neutrophils # (1.3-7.7) k/uL Lymphocytes # (1.0-4.8) k/uL Monocytes # (0-1.0) k/uL Eosinophils # (0-0.7) k/uL Basophils # (0-0.2) k/uL APTT (22.0-30.0) sec Sodium (137-145) mmol/L Potassium (3.5-5.1) mmol/L Chloride (98-107) mmol/L Carbon Dioxide (22-30) mmol/L Anion Gap mmol/L BUN (9-20) mg/dL Creatinine (0.66-1.25) mg/dL Est GFR (CKD-EPI)AfAm (>60 ml/min/1.73 sqM) Est GFR (CKD-EPI)NonAf (>60 ml/min/1.73 sqM) Glucose (74-99) mg/dL Plasma Lactic Acid Mansoor 1.8 (0.7-2.0) mmol/L Calcium (8.4-10.2) mg/dL Total Bilirubin (0.2-1.3) mg/dL AST (17-59) U/L ALT (4-49) U/L Alkaline Phosphatase (38-126) U/L Troponin I <0.012 (0.000-0.034) ng/mL Total Protein (6.3-8.2) g/dL Albumin (3.5-5.0) g/dL - Radiology Data Radiology results: report reviewed, image reviewed CT abdomen and pelvis is obtained. Report was reviewed in its entirety. Impression by Dr. Fairchild shows mild circumferential wall thickening mid to distal sigmoid and rectum. No significant surrounding inflammation. Correlate for nonspecific mild infectious or inflammatory colitis. IBD is in the differential. Saw the left abdominal region the lips appear slightly thickened as well and could reflect an enteritis. Hepatomegaly with hepatic steatosis. Disposition Clinical Impression: Colitis, GI bleed Disposition: HOME SELF-CARE Condition: Good Instructions (If sedation given, give patient instructions): Gastrointestinal Bleeding (ED), Colitis (ED) Additional Instructions: Complete antibiotic prescription in full. Follow-up with the primary care physician for recheck in 1-2 days. Return to the emergency department for any new, worsening, or concerning symptoms. Prescriptions: Dicyclomine [Bentyl] 20 mg PO QID #12 tablet Ciprofloxacin HCl [Cipro] 500 mg PO Q12HR #14 tablet metroNIDAZOLE [Flagyl] 500 mg PO QID #40 tab Is patient prescribed a controlled substance at d/c from ED?: No Referrals: Lucas Romero MD [STAFF PHYSICIAN] - 1-2 days Time of Disposition: 15:02
[2021-01-09] MEDS ORDERED: metroNIDAZOLE 500 MG TAB PO STA (15:00)
[2021-01-09] MEDS ORDERED: HYDROmorphone 0.5 MG/0.5 ML SYRINGE IVP STA (15:00)
[2021-01-09] MEDS ORDERED: ONDANSETRON 4 MG/2 ML VIAL IVP STA (15:00)
[2021-01-09] MEDS ORDERED: DICYCLOMINE 10 MG/ML 2 ML AMP IM STA (15:00)
[2021-01-09] MEDS ORDERED: traMADol 50 MG STARTER PACK 3 TAB BTL PO STA (15:02)
[2021-01-09] MEDS ORDERED: CIPROFLOXACIN HCL 250 MG TAB PO STA (15:02)
== END 2021-01-09 16:03 | disposition home or self-care (01) ==
LOC: EC 12:53
DX: K52.9 Noninfective gastroenteritis and colitis, unspecified (principal); I10 Essential (primary) hypertension; J45.909 Unspecified asthma, uncomplicated; F41.9 Anxiety disorder, unspecified; F32.9 Major depressive disorder, single episode, unspecified; F17.200 Nicotine dependence, unspecified, uncomplicated; F12.90 Cannabis use, unspecified, uncomplicated; Z88.6 Allergy status to analgesic agent
CPT/HCPCS: 99284; 96374; 96372; 36415; 80053; 83605; 84484; 85025; 85730; 74177; J0500; J1170; Q9967

== ENCOUNTER → 2021-01-16 | Outpatient (CLI) | payer BC, OTHER ==
--- NOTE | 2021-01-16 15:52 | XR ---
EXAMINATION TYPE: XR chest 2V DATE OF EXAM: 01/16/2021 COMPARISON: 12/17/2018 HISTORY: 30-year-old male with pain TECHNIQUE: Frontal and lateral views FINDINGS: The cardiomediastinal silhouette, aorta, and pulmonary vasculature are within normal limits. Lungs an d pleural spaces are clear. IMPRESSION: No acute cardiopulmonary process.
--- NOTE | 2021-01-16 15:54 | XR ---
EXAMINATION TYPE: XR ankle complete 3 views LT, XR foot complete 3 views LT DATE OF EXAM: 01/16/2021 COMPARISON: 11/04/2010 HISTORY: 30-year-old male with lateral pain after injury FINDINGS: Ankle: Ankle mortise is congruent. No acute fracture, subluxation, dislocation seen. Talar dome is intact. S mooth delineation to the Achilles tendon. Subtalar joint is aligned. Foot: No acute fracture, subluxation, dislocation seen. IMPRESSION: Ankle and foot without acute osseous abnormality seen.
== END | disposition home or self-care (01) ==
LOC: RADXRMAIN 13:38
PROVIDERS: ATTEND Family Medicine
DX: R07.9 Chest pain, unspecified (principal); M25.572 Pain in left ankle and joints of left foot; M79.672 Pain in left foot
CPT/HCPCS: 71046

== ENCOUNTER 2021-10-08 07:20 | Emergency (ER) | payer BC, OTHER ==
[2021-10-08 07:26] VITALS: BP 158/95; PULSE 99; RESP 18; TEMP 97.7
--- NOTE | 2021-10-08 07:56 | ED ---
General Adult HPI - General Chief complaint: GI Bleed Stated complaint: GI Bleed Time Seen by Provider: 10/08/21 07:39 Source: patient, RN notes reviewed Mode of arrival: ambulatory Limitations: no limitations - History of Present Illness Initial comments: This a 31-year-old male presents emergency Department with chief complaint blood in stool. Patient states she has been present for last 3-4 days. Has mild abdominal cramping. 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 Arreola after colonoscopy. Patient denies any fevers chills no rectal pain currently. Though he states he does hasn't some mild discomfort with bowel movements. Patient has a nausea vomiting no blood thinners no dysuria no hematuria patient denies history of ulcerative colitis or Crohn's. - Related Data Previous Rx's Medication Instructions Recorded Ibuprofen [Motrin] 800 mg PO Q6HR #30 tab 12/27/20 Ciprofloxacin HCl [Cipro] 500 mg PO Q12HR #14 tablet 01/09/21 Dicyclomine [Bentyl] 20 mg PO QID #12 tablet 01/09/21 metroNIDAZOLE [Flagyl] 500 mg PO QID #40 tab 01/09/21 Amoxicillin/Potassium Clav 1 tab PO Q12HR #20 tab 10/08/21 [Augmentin 875-125 Tablet] Dicyclomine [Bentyl] 20 mg PO TID #15 tablet 10/08/21 Allergies Allergy/AdvReac Type Severity Reaction Status Date / Time morphine Allergy Swelling/Shortness Verified 10/08/21 07:24 of Breath Review of Systems ROS Statement: Those systems with pertinent positive or pertinent negative responses have been documented in the HPI. ROS Other: All systems not noted in ROS Statement are negative. Past Medical History Past Medical History: Asthma, Hypertension Additional Past Medical History / Comment(s): pt states he is supposed to be on lopressor fo HTN but has not gotten it filled. History of Any Multi-Drug Resistant Organisms: None Reported Past Surgical History: Orthopedic Surgery Additional Past Surgical History / Comment(s): Bilateral knee arthroscopies. Past Anesthesia/Blood Transfusion Reactions: No Reported Reaction Past Psychological History: Anxiety, Depression Smoking Status: Current every day smoker Past Alcohol Use History: Daily Past Drug Use History: Marijuana - Past Family History Father History Unknown: Yes Mother Family Medical History: CVA/TIA, Diabetes Mellitus, Renal Disease Additional Family Medical History / Comment(s): Mother at the age of 45yrs from a heart attack. She had multiple medical problems including: heart disease, ESRD on dialysis, diabetic neuropathy and a CVA. General Exam Limitations: no limitations General appearance: alert, in no apparent distress Head exam: Present: atraumatic, normocephalic, normal inspection Eye exam: Present: normal appearance, PERRL, EOMI. Absent: scleral icterus, conjunctival injection, periorbital swelling ENT exam: Present: normal exam, mucous membranes moist Neck exam: Present: normal inspection, full ROM. Absent: tenderness, meningismus, lymphadenopathy Respiratory exam: Present: normal lung sounds bilaterally. Absent: respiratory distress, wheezes, rales, rhonchi, stridor Cardiovascular Exam: Present: regular rate, normal rhythm, normal heart sounds. Absent: systolic murmur, diastolic murmur, rubs, gallop, clicks GI/Abdominal exam: Present: soft, tenderness (Minimal diffuse), normal bowel sounds. Absent: distended, guarding, rebound, rigid Back exam: Absent: CVA tenderness (R), CVA tenderness (L) Neurological exam: Present: alert Skin exam: Present: warm, dry, intact, normal color. Absent: rash Course Vital Signs 10/08/21 07:24 Temperature 97.7 F Pulse Rate 99 Respiratory 18 Rate Blood Pressure 158/95 O2 Sat by Pulse 99 Oximetry Medical Decision Making - Medical Decision Making 31-year-old male presents emergency Department chief complaint of GI bleed. Hemoglobin is stable CT shows inflammatory changes: He has had prior colonoscopy no evidence of all sclerae Crohn's. This may be related to a viral versus bacterial colitis. Patient has no significant leukocytosis will be discharged to initial follow-up with Dr. Arreola. - Lab Data Result diagrams: 10/08/21 07:58 10/08/21 07:58 Lab Results 10/08/21 10/08/21 10/08/21 Range/Units 07:58 07:58 07:58 WBC 7.0 (3.8-10.6) k/uL RBC 5.39 (4.30-5.90) m/uL Hgb 15.9 (13.0-17.5) gm/dL Hct 47.2 (39.0-53.0) % MCV 87.5 (80.0-100.0) fL MCH 29.5 (25.0-35.0) pg MCHC 33.7 (31.0-37.0) g/dL RDW 14.1 (11.5-15.5) % Plt Count 290 (150-450) k/uL MPV 7.3 Neutrophils % 54 % Lymphocytes % 35 % Monocytes % 7 % Eosinophils % 1 % Basophils % 1 % Neutrophils # 3.8 (1.3-7.7) k/uL Lymphocytes # 2.5 (1.0-4.8) k/uL Monocytes # 0.5 (0-1.0) k/uL Eosinophils # 0.1 (0-0.7) k/uL Basophils # 0.0 (0-0.2) k/uL Sodium 141 (137-145) mmol/L Potassium 3.8 (3.5-5.1) mmol/L Chloride 108 H (98-107) mmol/L Carbon Dioxide 21 L (22-30) mmol/L Anion Gap 12 mmol/L BUN 10 (9-20) mg/dL Creatinine 1.02 (0.66-1.25) mg/dL Est GFR (CKD-EPI)AfAm >90 (>60 ml/min/1.73 sqM) Est GFR (CKD-EPI)NonAf >90 (>60 ml/min/1.73 sqM) Glucose 137 H (74-99) mg/dL Plasma Lactic Acid Mansoor 1.4 (0.7-2.0) mmol/L Calcium 8.9 (8.4-10.2) mg/dL Total Bilirubin 0.9 (0.2-1.3) mg/dL AST 44 (17-59) U/L ALT 42 (4-49) U/L Alkaline Phosphatase 122 (38-126) U/L Total Protein 7.1 (6.3-8.2) g/dL Albumin 4.2 (3.5-5.0) g/dL Amylase 94 (30-110) U/L Lipase 257 (23-300) U/L Disposition Clinical Impression: Colitis Disposition: HOME SELF-CARE Condition: Stable Instructions (If sedation given, give patient instructions): Gastrointestinal Bleeding (ED), Colitis (ED) Additional Instructions: Please return to the Emergency Department if symptoms worsen or any other concerns. Prescriptions: Amoxicillin/Potassium Clav [Augmentin 875-125 Tablet] 1 tab PO Q12HR #20 tab Dicyclomine [Bentyl] 20 mg PO TID #15 tablet Is patient prescribed a controlled substance at d/c from ED?: No Referrals: Karolina Davenport MD [Primary Care Provider] - 1-2 days Barby Benavidez MD [STAFF PHYSICIAN] - 1-2 days Time of Disposition: 09:29
[2021-10-08 08:26] LABS: ALT 42 U/L (4-49); AST 44 U/L (17-59); African American GFR (CKD) >90 (>60 ml/min/1.73 sqM); Albumin 4.2 g/dL (3.5-5.0); Alkaline Phosphatase 122 U/L (38-126); Amylase 94 U/L (30-110); Anion Gap 12 mmol/L; Blood Urea Nitrogen 10 mg/dL (9-20); Calcium 8.9 mg/dL (8.4-10.2); Carbon Dioxide 21 mmol/L (22-30); Chloride 108 mmol/L (98-107); Glucose 137 mg/dL (74-99); Lipase 257 U/L (23-300); Non-African American GFR(CKD) >90 (>60 ml/min/1.73 sqM); Potassium 3.8 mmol/L (3.5-5.1); Sodium 141 mmol/L (137-145); Total Bilirubin 0.9 mg/dL (0.2-1.3); Total Protein 7.1 g/dL (6.3-8.2)
--- NOTE | 2021-10-08 08:55 | CT ---
EXAMINATION TYPE: CT abdomen pelvis w con DATE OF EXAM: 10/08/2021 COMPARISON: CT dated 01/09/2021 HISTORY: GI Bleed CT DLP: 1524.1 mGycm Automated exposure control for dose reduction was used. TECHNIQUE: Helical acquisition of images was performed from the lung bases through the pelvis. CONTRAST: Performed without Oral Contrast and with IV Contrast, patient injected with 100 mL of Isovue 300. FINDINGS: LUNG BASES: No significant abnormality is appreciated. LIVER/GB: Suspected hepatic steatosis. No definite hepatic focal lesion. Grossly unremarkable gallbla dder. PANCREAS: No significant abnormality is seen. SPLEEN: No significant abnormality is seen. ADRENALS: No significant abnormality is seen. KIDNEYS: No significant abnormality is seen. FREE AIR: No free air is visualized. RETROPERITONEAL ADENOPATHY: None visualized REPRODUCTIVE ORGANS: No significant abnormality is seen URINARY BLADDER: Incompletely distended. PELVIC ADENOPATHY: No pathologically enlarged pelvic lymph nodes. OSSEOUS STRUCTURES: No aggressive bone lesion. BOWEL: Unremarkable nondistended stomach, duodenum and small bowel. Wall thickening of the sigmoid c olon with surrounding fat stranding and congested vessels which may suggest mild acute colitis, pleas e correlate clinically. Fatty infiltration of the ascending colon and cecum which could be related to chronic colitis. Normal appendix. OTHER: No sizable ascites. IMPRESSION: Possible colitis as detailed above, for clinical correlation and further workup. Other findings as de tailed above.
[2021-10-08 08:57] LABS: Basophils % (A) 1 %; Eosinophils # (A) 0.1 k/uL (0-0.7); Eosinophils % (A) 1 %; HCT 47.2 % (39.0-53.0); HGB 15.9 gm/dL (13.0-17.5); Lymphocytes # (A) 2.5 k/uL (1.0-4.8); Lymphocytes % (A) 35 %; MCH 29.5 pg (25.0-35.0); MCHC 33.7 g/dL (31.0-37.0); MCV 87.5 fL (80.0-100.0); Mean Platelet Volume 7.3; Monocytes # (A) 0.5 k/uL (0-1.0); Monocytes % (A) 7 %; Neutrophils # (A) 3.8 k/uL (1.3-7.7); Neutrophils % (A) 54 %; Platelet Count 290 k/uL (150-450); RBC 5.39 m/uL (4.30-5.90); RDW 14.1 % (11.5-15.5)
== END 2021-10-08 10:25 | disposition home or self-care (01) ==
LOC: EC 07:20
DX: K52.9 Noninfective gastroenteritis and colitis, unspecified (principal); F17.200 Nicotine dependence, unspecified, uncomplicated; J45.909 Unspecified asthma, uncomplicated; I10 Essential (primary) hypertension; Z88.5 Allergy status to narcotic agent
CPT/HCPCS: 36415; 80053; 82150; 83605; 83690; 85025; 74177; 99284; Q9967

== ENCOUNTER → 2021-10-30 | Outpatient (CLI) | payer BC, OTHER | END | disposition home or self-care (01) | LOC: LABWHC1 10:40 | PROVIDERS: ATTEND Family Medicine | DX: B19.20 Unspecified viral hepatitis C without hepatic coma (principal) | CPT/HCPCS: 36415; 87522 ==

== ENCOUNTER 2022-03-21 14:54 | Emergency (ER) | payer BC, OTHER ==
[2022-03-21 15:09] VITALS: TEMP 98.4
--- NOTE | 2022-03-21 15:26 | ED ---
General Adult HPI - General Chief complaint: Nausea/Vomiting/Diarrhea Stated complaint: Vomiting,diarrhea Time Seen by Provider: 03/21/22 15:22 Source: patient Mode of arrival: ambulatory Limitations: no limitations - History of Present Illness Initial comments: Patient presents to the ED with his for evaluation. Patient states that he has had generalized weakness/lightheadedness for the past 3 days or so. Patient also states that he had bloody bowel movements 2 days ago, and he states that he has had "black, tarry" bowel movements today. Patient also admits to having nausea and vomiting over the past couple of days. Patient denies hematemesis. Patient admits to having generalized abdominal pain. Patient states that he had bloody bowel movements a few months ago, and he states that he was diagnosed with a bleeding hemorrhoid at that time, which he states was resected. Patient denies family history of ulcerative colitis or Crohn's disease. Patient denies anticoagulant medication use. Patient admits to regular/daily alcohol use. Patient denies trauma or injury, fever or chills, headache, focal neuro deficit, chest pain or pressure, dyspnea, cough or cold symptoms, palpitations, hematemesis, rectal pain, dysuria/hematuria/urinary frequency/urinary symptoms, or any other symptoms or complaints. - Related Data Previous Rx's Medication Instructions Recorded Ibuprofen [Motrin] 800 mg PO Q6HR #30 tab 12/27/20 Ciprofloxacin HCl [Cipro] 500 mg PO Q12HR #14 tablet 01/09/21 Dicyclomine [Bentyl] 20 mg PO QID #12 tablet 01/09/21 metroNIDAZOLE [Flagyl] 500 mg PO QID #40 tab 01/09/21 Amoxicillin/Potassium Clav 1 tab PO Q12HR #20 tab 10/08/21 [Augmentin 875-125 Tablet] Dicyclomine [Bentyl] 20 mg PO TID #15 tablet 10/08/21 Allergies Allergy/AdvReac Type Severity Reaction Status Date / Time morphine Allergy Swelling/Shortness Verified 03/21/22 15:08 of Breath Review of Systems ROS Statement: Those systems with pertinent positive or pertinent negative responses have been documented in the HPI. ROS Other: All systems not noted in ROS Statement are negative. Past Medical History Past Medical History: Asthma, Hypertension Additional Past Medical History / Comment(s): pt states he is supposed to be on lopressor fo HTN but has not gotten it filled. History of Any Multi-Drug Resistant Organisms: None Reported Past Surgical History: Orthopedic Surgery Additional Past Surgical History / Comment(s): Bilateral knee arthroscopies. Past Anesthesia/Blood Transfusion Reactions: No Reported Reaction Past Psychological History: Anxiety, Depression Smoking Status: Current every day smoker Past Alcohol Use History: Daily Past Drug Use History: Marijuana - Past Family History Father History Unknown: Yes Mother Family Medical History: CVA/TIA, Diabetes Mellitus, Renal Disease Additional Family Medical History / Comment(s): Mother at the age of 45yrs from a heart attack. She had multiple medical problems including: heart disease, ESRD on dialysis, diabetic neuropathy and a CVA. General Exam Limitations: no limitations General appearance: alert, in no apparent distress Head exam: Present: atraumatic, normocephalic Eye exam: Present: normal appearance, EOMI ENT exam: Present: mucous membranes moist Neck exam: Present: other (Trachea is in midline) Respiratory exam: Present: normal lung sounds bilaterally. Absent: respiratory distress, wheezes, rales, rhonchi, stridor Cardiovascular Exam: Present: regular rate, normal rhythm, normal heart sounds, other (Normal radial pulses bilaterally) GI/Abdominal exam: Present: soft, normal bowel sounds, other (Mild generalized abdominal tenderness). Absent: distended, guarding, rebound Rectal exam: Present: normal rectal tone, other (Brown stool was retrieved from rectal vault on digital rectal exam and sent for hemoccult testing). Absent: tenderness Extremities exam: Absent: tenderness, pedal edema Neurological exam: Present: alert, oriented X3. Absent: motor sensory deficit Psychiatric exam: Present: normal affect, normal mood Skin exam: Present: warm, dry, intact, normal color Course Vital Signs 03/21/22 15:06 Temperature 98.4 F Pulse Rate 94 Respiratory 20 Rate Blood Pressure 153/103 O2 Sat by Pulse 97 Oximetry - Reevaluation(s) Reevaluation #1: 03/21/22 17:57 Patient has not had any vomiting while in the ED. Patient continues to have a benign/nonsurgical abdominal exam. Patient remains hemodynamic stable. Patient and are aware the patient's test results, and patient feels comfortable being discharged home at this time. Patient was counseled about abdominal pain, vomiting and weakness. Patient was clearly explained return and follow-up instructions, and he was instructed to follow up closely with his primary care provider. Patient feels comfortable with this plan. EKG Findings - EKG Comments: EKG Findings:: Normal sinus rhythm, ventricular rate of 82 bpm, no ectopy, normal CO and QRS intervals, normal QT interval, normal axis, no ST or T-wave abnormality Medical Decision Making - Medical Decision Making Patient has been hemodynamically stable while in the ED, and his hemoglobin is normal/stable at 16.6. Patient has a benign and nonsurgical abdominal exam. Patient's CT abdomen/pelvis with IV contrast is negative. Patient's rectal exam revealed brown, guaiac negative stool. Patient has not had any vomiting while in the ED. Patient is afebrile and without leukocytosis. Patient's labs are fairly unremarkable other than mildly elevated transaminases. I do not suspect an emergent medical condition at this time. Will discharge patient home at this time. Patient was instructed to follow up closely with his primary care provider. Patient feels comfortable with this plan. - Lab Data Result diagrams: 03/21/22 16:04 03/21/22 16:04 Lab Results 03/21/22 03/21/22 03/21/22 Range/Units 16:04 16:04 16:04 WBC 10.3 (3.8-10.6) k/uL RBC 5.68 (4.30-5.90) m/uL Hgb 16.6 (13.0-17.5) gm/dL Hct 48.4 (39.0-53.0) % MCV 85.3 (80.0-100.0) fL MCH 29.2 (25.0-35.0) pg MCHC 34.2 (31.0-37.0) g/dL RDW 13.0 (11.5-15.5) % Plt Count 373 (150-450) k/uL MPV 7.7 Neutrophils % 58 % Lymphocytes % 32 % Monocytes % 6 % Eosinophils % 2 % Basophils % 1 % Neutrophils # 5.9 (1.3-7.7) k/uL Lymphocytes # 3.3 (1.0-4.8) k/uL Monocytes # 0.6 (0-1.0) k/uL Eosinophils # 0.2 (0-0.7) k/uL Basophils # 0.1 (0-0.2) k/uL PT 11.0 (9.0-12.0) sec INR 1.0 (<1.2) APTT 27.0 (22.0-30.0) sec Sodium 138 (137-145) mmol/L Potassium 3.9 (3.5-5.1) mmol/L Chloride 103 (98-107) mmol/L Carbon Dioxide 20 L (22-30) mmol/L Anion Gap 15 mmol/L BUN 9 (9-20) mg/dL Creatinine 0.87 (0.66-1.25) mg/dL Est GFR (CKD-EPI)AfAm >90 (>60 ml/min/1.73 sqM) Est GFR (CKD-EPI)NonAf >90 (>60 ml/min/1.73 sqM) Glucose 133 H (74-99) mg/dL Calcium 9.4 (8.4-10.2) mg/dL Total Bilirubin 1.1 (0.2-1.3) mg/dL AST 75 H (17-59) U/L ALT 69 H (4-49) U/L Alkaline Phosphatase 118 (38-126) U/L Troponin I (0.000-0.034) ng/mL Total Protein 7.5 (6.3-8.2) g/dL Albumin 4.4 (3.5-5.0) g/dL Lipase 270 (23-300) U/L Stool Occult Blood (Negative) Serum Alcohol <10 mg/dL Blood Type Blood Type Confirm Blood Type Recheck Bld Type Recheck Status Antibody Screen Spec Expiration Date 03/21/22 03/21/22 03/21/22 Range/Units 16:04 16:04 16:08 WBC (3.8-10.6) k/uL RBC (4.30-5.90) m/uL Hgb (13.0-17.5) gm/dL Hct (39.0-53.0) % MCV (80.0-100.0) fL MCH (25.0-35.0) pg MCHC (31.0-37.0) g/dL RDW (11.5-15.5) % Plt Count (150-450) k/uL MPV Neutrophils % % Lymphocytes % % Monocytes % % Eosinophils % % Basophils % % Neutrophils # (1.3-7.7) k/uL Lymphocytes # (1.0-4.8) k/uL Monocytes # (0-1.0) k/uL Eosinophils # (0-0.7) k/uL Basophils # (0-0.2) k/uL PT (9.0-12.0) sec INR (<1.2) APTT (22.0-30.0) sec Sodium (137-145) mmol/L Potassium (3.5-5.1) mmol/L Chloride (98-107) mmol/L Carbon Dioxide (22-30) mmol/L Anion Gap mmol/L BUN (9-20) mg/dL Creatinine (0.66-1.25) mg/dL Est GFR (CKD-EPI)AfAm (>60 ml/min/1.73 sqM) Est GFR (CKD-EPI)NonAf (>60 ml/min/1.73 sqM) Glucose (74-99) mg/dL Calcium (8.4-10.2) mg/dL Total Bilirubin (0.2-1.3) mg/dL AST (17-59) U/L ALT (4-49) U/L Alkaline Phosphatase (38-126) U/L Troponin I <0.012 (0.000-0.034) ng/mL Total Protein (6.3-8.2) g/dL Albumin (3.5-5.0) g/dL Lipase (23-300) U/L Stool Occult Blood Negative (Negative) Serum Alcohol mg/dL Blood Type A Positive Blood Type Confirm Blood Type Recheck No Previous Record Bld Type Recheck Status CABO Indicated Antibody Screen POSITIVE Spec Expiration Date 03/24/2022 - 230303/21/22 Range/Units 16:11 WBC (3.8-10.6) k/uL RBC (4.30-5.90) m/uL Hgb (13.0-17.5) gm/dL Hct (39.0-53.0) % MCV (80.0-100.0) fL MCH (25.0-35.0) pg MCHC (31.0-37.0) g/dL RDW (11.5-15.5) % Plt Count (150-450) k/uL MPV Neutrophils % % Lymphocytes % % Monocytes % % Eosinophils % % Basophils % % Neutrophils # (1.3-7.7) k/uL Lymphocytes # (1.0-4.8) k/uL Monocytes # (0-1.0) k/uL Eosinophils # (0-0.7) k/uL Basophils # (0-0.2) k/uL PT (9.0-12.0) sec INR (<1.2) APTT (22.0-30.0) sec Sodium (137-145) mmol/L Potassium (3.5-5.1) mmol/L Chloride (98-107) mmol/L Carbon Dioxide (22-30) mmol/L Anion Gap mmol/L BUN (9-20) mg/dL Creatinine (0.66-1.25) mg/dL Est GFR (CKD-EPI)AfAm (>60 ml/min/1.73 sqM) Est GFR (CKD-EPI)NonAf (>60 ml/min/1.73 sqM) Glucose (74-99) mg/dL Calcium (8.4-10.2) mg/dL Total Bilirubin (0.2-1.3) mg/dL AST (17-59) U/L ALT (4-49) U/L Alkaline Phosphatase (38-126) U/L Troponin I (0.000-0.034) ng/mL Total Protein (6.3-8.2) g/dL Albumin (3.5-5.0) g/dL Lipase (23-300) U/L Stool Occult Blood (Negative) Serum Alcohol mg/dL Blood Type Blood Type Confirm A Positive Blood Type Recheck Bld Type Recheck Status Antibody Screen Spec Expiration Date - Radiology Data CT abdomen/pelvis with IV contrast: Negative CT scan abdomen and pelvis. No change compared to the old exam. Disposition Clinical Impression: Vomiting, Abdominal pain, Weakness Disposition: HOME SELF-CARE Condition: Stable Instructions (If sedation given, give patient instructions): Acute Nausea and Vomiting (ED), Weakness (ED), Abdominal Pain (ED) Additional Instructions: Return to the ER immediately should you develop new or worsening pain, persistent vomiting, bleeding, a fever, fainting, shortness of breath, or new or worsening symptoms. Follow up closely with your primary care provider. Is patient prescribed a controlled substance at d/c from ED?: No Referrals: Karolina Davenport MD [Primary Care Provider] - 1-2 days Time of Disposition: 17:58
[2022-03-21] MEDS ORDERED: ONDANSETRON 4 MG/2 ML VIAL IVP STA (15:40)
[2022-03-21] MEDS ORDERED: SODIUM CHLORIDE 0.9% 1,000 ML IV STA (15:40)
[2022-03-21] MEDS ORDERED: PANTOPRAZOLE 40 MG/10 ML VIAL IVP STA (15:42)
[2022-03-21 16:21] LABS: Basophils # (A) 0.1 k/uL (0-0.2); Basophils % (A) 1 %; Eosinophils # (A) 0.2 k/uL (0-0.7); Eosinophils % (A) 2 %; HCT 48.4 % (39.0-53.0); HGB 16.6 gm/dL (13.0-17.5); Lymphocytes # (A) 3.3 k/uL (1.0-4.8); Lymphocytes % (A) 32 %; MCH 29.2 pg (25.0-35.0); MCHC 34.2 g/dL (31.0-37.0); MCV 85.3 fL (80.0-100.0); Mean Platelet Volume 7.7; Monocytes # (A) 0.6 k/uL (0-1.0); Monocytes % (A) 6 %; Neutrophils # (A) 5.9 k/uL (1.3-7.7); Neutrophils % (A) 58 %; Platelet Count 373 k/uL (150-450); RBC 5.68 m/uL (4.30-5.90); WBC 10.3 k/uL (3.8-10.6)
[2022-03-21 16:31] LABS: ALT 69 U/L (4-49); AST 75 U/L (17-59); African American GFR (CKD) >90 (>60 ml/min/1.73 sqM); Albumin 4.4 g/dL (3.5-5.0); Alcohol <10 mg/dL; Alkaline Phosphatase 118 U/L (38-126); Anion Gap 15 mmol/L; Blood Urea Nitrogen 9 mg/dL (9-20); Calcium 9.4 mg/dL (8.4-10.2); Carbon Dioxide 20 mmol/L (22-30); Chloride 103 mmol/L (98-107); Glucose 133 mg/dL (74-99); Lipase 270 U/L (23-300); Non-African American GFR(CKD) >90 (>60 ml/min/1.73 sqM); Potassium 3.9 mmol/L (3.5-5.1); Sodium 138 mmol/L (137-145); Total Bilirubin 1.1 mg/dL (0.2-1.3); Total Protein 7.5 g/dL (6.3-8.2)
--- NOTE | 2022-03-21 17:06 | CT ---
EXAMINATION TYPE: CT abdomen pelvis w con DATE OF EXAM: 03/21/2022 COMPARISON: 10/08/2021 HISTORY: abd pain CT DLP: 1261.8 mGycm Automated exposure control for dose reduction was used. CONTRAST: Performed with IV Contrast, patient injected with 100 mL of Isovue 300. Lung bases are clear. No pleural effusion. Heart size is normal. No pericardial effusion. Liver splee n and stomach pancreas and gallbladder appear normal. The bile ducts are not dilated. There is no adrenal mass. Kidneys show satisfactory contrast opacification. No hydronephrosis. Ureter s are not dilated. No retroperitoneal adenopathy. Appendix is posterior and appears normal. The urinary bladder is almost empty. No inguinal hernia. No free fluid in the pelvis. No pelvic mass. There is no mesenteric edema. No ascites or free air. No sign of a bowel obstruction. The lumbar sam tebra appear intact. No compression fracture. Posterior elements are intact. Bony pelvis is intact. H ip joints are intact. IMPRESSION: Negative CT scan abdomen and pelvis. No change compared to the old exam.
[2022-03-21] MEDS ORDERED: ONDANSETRON 4 MG ODT STARTER PACK 2 TAB BTL PO STA (17:56)
[2022-03-21 18:14] VITALS: BP 158/98; PULSE 88; RESP 18
== END 2022-03-21 18:18 | disposition home or self-care (01) ==
LOC: EC 14:54
DX: R53.1 Weakness (principal); R10.84 Generalized abdominal pain; R11.2 Nausea with vomiting, unspecified; I10 Essential (primary) hypertension; J45.909 Unspecified asthma, uncomplicated; F17.200 Nicotine dependence, unspecified, uncomplicated; R74.01 Elevation of levels of liver transaminase levels; Z88.5 Allergy status to narcotic agent; Z79.899 Other long term (current) drug therapy
CPT/HCPCS: 36415; 93005; 86900; 86901; 80053; 83690; 84484; 85025; 85610; 85730; 86850; 86870; 86880; 82272; 80320; 74177; 99285; 96374; 96375; 96361; J2405; S0119; C9113; Q9967

== ENCOUNTER 2022-04-26 10:31 | Emergency (ER) | payer BC, OTHER ==
[2022-04-26 10:47] VITALS: BP 170/90; PULSE 100; RESP 20; TEMP 98.2
[2022-04-26] MEDS ORDERED: KETOROLAC 15 MG/ML 1 ML VIAL IM STA (10:54)
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
--- NOTE | 2022-04-26 11:16 | XR ---
Right ankle HISTORY: Pain following trauma. COMPARISON: None. TECHNIQUE: 3 views of the right ankle were obtained. FINDINGS: There is no fracture, dislocation, intraosseous or intra-articular abnormality. The ankle mortise is intact. Soft tissues are unremarkable. IMPRESSION: No significant abnormality seen.
--- NOTE | 2022-04-26 11:17 | XR ---
Right knee HISTORY: Pain following trauma COMPARISON: None. TECHNIQUE: 3 views the right knee were obtained. FINDINGS: There is no fracture, dislocation, intraosseous or intra-articular abnormality. There is no radiopaqu e foreign body or abnormal soft tissue gas or calcification. There is no joint effusion. IMPRESSION: No significant abnormality seen.
== END 2022-04-26 11:42 | disposition home or self-care (01) ==
LOC: EC 10:31
DX: S80.811A Abrasion, right lower leg, initial encounter (principal); M23.91 Unspecified internal derangement of right knee; F17.200 Nicotine dependence, unspecified, uncomplicated; J45.909 Unspecified asthma, uncomplicated; I10 Essential (primary) hypertension; Z88.5 Allergy status to narcotic agent; X50.9XXA Other and unspecified overexertion or strenuous movements or postures, initial encounter; Y92.89 Other specified places as the place of occurrence of the external cause
CPT/HCPCS: 99283; 96372; 73562; 73610; L1830; J1885

== ENCOUNTER 2022-06-26 23:47 | Observation (INO) | payer BC, OTHER ==
[2022-06-26] MEDS ORDERED: SODIUM CHLORIDE 0.9% 1,000 ML IV STA (23:50)
--- NOTE | 2022-06-26 23:51 | ED ---
Overdose HPI - General Stated Complaint: overdose Time Seen by Provider: 06/26/22 23:50 Source: RN notes reviewed, old records reviewed, Caregiver Mode of arrival: EMS Limitations: altered mental status, physical limitation - History of Present Illness Initial Comments: This is a 32-year-old male poor story patient's presents today for evaluation of overdose on no medication overdose states "I am or diarrhea. Patient has severe weakness mild nausea no vomiting no severe complaints. Patient does have prior history of same. Patient has admits alcohol MD Complaint: intentional overdose, accidental overdose -: hour(s) Intent: unwilling to say, want to escape How Overdose Was Discovered: called family/friend, called 911 Context: Intentional Overdose: drug/ETOH problems Context: Accidental Overdose: wanted to get high, was drinking then took pills Associated Symptoms: depression Treatments Prior to Arrival: oxygen, narcan, IV fluids - Related Data Previous Rx's Medication Instructions Recorded Ibuprofen [Motrin] 800 mg PO Q6HR #30 tab 12/27/20 Ciprofloxacin HCl [Cipro] 500 mg PO Q12HR #14 tablet 01/09/21 Dicyclomine [Bentyl] 20 mg PO QID #12 tablet 01/09/21 metroNIDAZOLE [Flagyl] 500 mg PO QID #40 tab 01/09/21 Amoxicillin/Potassium Clav 1 tab PO Q12HR #20 tab 10/08/21 [Augmentin 875-125 Tablet] Dicyclomine [Bentyl] 20 mg PO TID #15 tablet 10/08/21 Allergies Allergy/AdvReac Type Severity Reaction Status Date / Time morphine Allergy Swelling/Shortness Verified 03/21/22 15:08 of Breath Review of Systems ROS Statement: Those systems with pertinent positive or pertinent negative responses have been documented in the HPI. ROS Other: All systems not noted in ROS Statement are negative. Past Medical History Past Medical History: Asthma, Hypertension Additional Past Medical History / Comment(s): pt states he is supposed to be on lopressor fo HTN but has not gotten it filled. History of Any Multi-Drug Resistant Organisms: None Reported Past Surgical History: Orthopedic Surgery Additional Past Surgical History / Comment(s): Bilateral knee arthroscopies. Past Anesthesia/Blood Transfusion Reactions: No Reported Reaction Past Psychological History: Anxiety, Depression Smoking Status: Current every day smoker Past Alcohol Use History: Daily Past Drug Use History: Marijuana - Past Family History Father History Unknown: Yes Mother Family Medical History: CVA/TIA, Diabetes Mellitus, Renal Disease Additional Family Medical History / Comment(s): Mother at the age of 45yrs from a heart attack. She had multiple medical problems including: heart disease, ESRD on dialysis, diabetic neuropathy and a CVA. General Exam Limitations: altered mental status, physical limitation General appearance: alert, in no apparent distress, lethargic, in distress Head exam: Present: atraumatic, normocephalic, normal inspection Eye exam: Present: normal appearance, PERRL, EOMI. Absent: scleral icterus, conjunctival injection, periorbital swelling ENT exam: Present: normal exam, mucous membranes moist Neck exam: Present: normal inspection. Absent: tenderness, meningismus, lymphadenopathy Respiratory exam: Present: normal lung sounds bilaterally. Absent: respiratory distress, wheezes, rales, rhonchi, stridor Cardiovascular Exam: Present: regular rate, normal rhythm, normal heart sounds. Absent: systolic murmur, diastolic murmur, rubs, gallop, clicks GI/Abdominal exam: Present: soft, normal bowel sounds. Absent: distended, tenderness, guarding, rebound, rigid Extremities exam: Present: normal inspection, full ROM, normal capillary refill. Absent: tenderness, pedal edema, joint swelling, calf tenderness Back exam: Present: normal inspection Neurological exam: Present: alert, oriented X3, CN II-XII intact Psychiatric exam: Present: normal affect, normal mood Skin exam: Present: warm, dry, intact, normal color. Absent: rash Course Vital Signs 06/26/22 06/26/22 06/27/22 23:49 23:54 00:13 Temperature Pulse Rate 80 88 79 Respiratory 10 L 10 L 10 L Rate Blood Pressure 104/73 97/65 85/43 O2 Sat by Pulse 99 92 L 92 L Oximetry 06/27/22 06/27/22 06/27/22 00:53 01:00 01:10 Temperature 98.4 F Pulse Rate 57 L 59 L 60 Respiratory 13 13 12 Rate Blood Pressure 117/74 117/74 124/89 O2 Sat by Pulse 95 95 94 L Oximetry 06/27/22 06/27/22 01:20 01:30 Temperature Pulse Rate 62 63 Respiratory 10 L 13 Rate Blood Pressure 127/86 127/86 O2 Sat by Pulse 95 93 L Oximetry - Reevaluation(s) Reevaluation #1: 06/27/22 02:05 Medical record is reviewed Reevaluation #2: 06/27/22 02:05 Patient has no change in the ER Reevaluation #3: 06/27/22 02:05 Patient informed results questions answered Reevaluation #4: 06/27/22 02:05 Differential Altered Mental Status: Hypoglycemia, DKA, hypercapnia, ETOH, overdose, CO poisoning, trauma, myxedema coma, HTN encephalopathy, infection, encephalitis, psychosis, intercranial hemorrhage, hepatic encephalopathy, meningitis, CVA, this is not meant to be an all-inclusive list Reevaluation #5: 06/27/22 02:05 Was pt. sent in by a medical professional or institution? @ -no Did you speak to anyone other than the patient for history? @ -family Did you review nursing and triage notes? @ -agree Were old charts reviewed? @ -no Differential Diagnosis? @ -prior EKG interpreted by me (3pts min.)? @ -[none] X-rays interpreted by me (1pt min.)? @ -[none] CT interpreted by me (1pt min.)? @ -[none] U/S interpreted by me (1pt. min.)? @ -[none] What testing was considered but not performed? (CT, X-rays, U/S, labs)? Why? @ [CT, X-rays, U/S, labs? Why?] What meds were considered but not given? Why? @ -[none] Did you discuss the management of the patient with other professionals? @ --no Did you reconcile home meds? @ -[none] Was smoking cessation discussed for >3mins.? @ -[none] Was critical care preformed (if so, how long)? @ -[none] Were there social determinants of health that impacted care today? How? (Homelessness, low income, unemployed, alcoholism, drug addiction, transportation, low edu. Level, literacy, decrease access to med. care, senior living, rehab)? @ -no Was there de-escalation of care discussed even if they declined? (Discuss DNR or withdrawal of care, Hospice)? @ -no What co-morbidities impacted this encounter? (DM, HTN, Smoking, COPD, CAD, Cancer, CVA, Hep., AIDS, mental health diagnosis, sleep apnea, morbid obesity)? @ -no Was patient admitted / discharged? @ -admit Undiagnosed new problem with uncertain prognosis? @ -[none] Drug Therapy requiring intensive monitoring for toxicity (Heparin, Nitro, Insulin, Cardizem)? @ -[none] Were any procedures done? @ -[none] Diagnosis/symptom? @ -[default] Acute, or Chronic, or Acute on Chronic? @ -[default] Uncomplicated (without systemic symptoms) or Complicated (systemic symptoms)? @ -[default] Side effects of treatment? @ -[none] Exacerbation, Progression, or Severe Exacerbation] @ -[no] Poses a threat to life or bodily function? @ -[no] Medical Decision Making - Medical Decision Making 32-year-old male DF for evaluation of overdose. Patient has severe overdose prior to arrival here in the emergency department severe unresponsiveness placed sense of low oxygen and supportive care patient be admitted for evaluation observation and psychiatric treatment - Lab Data Result diagrams: 06/27/22 00:11 06/27/22 00:11 Lab Results 06/27/22 06/27/22 06/27/22 Range/Units 00:04 00:11 00:11 WBC 6.4 (3.8-10.6) k/uL RBC 5.16 (4.30-5.90) m/uL Hgb 14.7 (13.0-17.5) gm/dL Hct 43.2 (39.0-53.0) % MCV 83.8 (80.0-100.0) fL MCH 28.4 (25.0-35.0) pg MCHC 33.9 (31.0-37.0) g/dL RDW 13.8 (11.5-15.5) % Plt Count 317 (150-450) k/uL MPV 7.6 Neutrophils % 46 % Lymphocytes % 43 % Monocytes % 6 % Eosinophils % 1 % Basophils % 1 % Neutrophils # 3.0 (1.3-7.7) k/uL Lymphocytes # 2.8 (1.0-4.8) k/uL Monocytes # 0.4 (0-1.0) k/uL Eosinophils # 0.1 (0-0.7) k/uL Basophils # 0.1 (0-0.2) k/uL Sodium (137-145) mmol/L Potassium (3.5-5.1) mmol/L Chloride (98-107) mmol/L Carbon Dioxide (22-30) mmol/L Anion Gap mmol/L BUN (9-20) mg/dL Creatinine (0.66-1.25) mg/dL Est GFR (CKD-EPI)AfAm (>60 ml/min/1.73 sqM) Est GFR (CKD-EPI)NonAf (>60 ml/min/1.73 sqM) Glucose (74-99) mg/dL POC Glucose (mg/dL) 209 H (70-110) mg/dL POC Glu [employer] ID Pema Horton Calcium (8.4-10.2) mg/dL Total Bilirubin (0.2-1.3) mg/dL AST (17-59) U/L ALT (4-49) U/L Alkaline Phosphatase (38-126) U/L Total Protein (6.3-8.2) g/dL Albumin (3.5-5.0) g/dL Amylase (30-110) U/L Lipase (23-300) U/L Urine Color Light Yellow Urine Appearance Clear (Clear) Urine pH 6.5 (5.0-8.0) Ur Specific [place] 1.010 (1.001-1.035) Urine Protein Negative (Negative) Urine Glucose (UA) Negative (Negative) Urine Ketones Negative (Negative) Urine Blood Negative (Negative) Urine Nitrite Negative (Negative) Urine Bilirubin Negative (Negative) Urine Urobilinogen <2.0 (<2.0) mg/dL Ur Leukocyte Esterase Negative (Negative) Salicylates mg/dL Urine Opiates Screen Not Detected (NotDetected) Ur Oxycodone Screen Not Detected (NotDetected) Urine Methadone Screen Not Detected (NotDetected) Ur Propoxyphene Screen Not Detected (NotDetected) Acetaminophen ug/mL Ur Barbiturates Screen Not Detected (NotDetected) U Tricyclic Antidepress Not Detected (NotDetected) Ur Phencyclidine Scrn Not Detected (NotDetected) Ur Amphetamines Screen Not Detected (NotDetected) U Methamphetamines Scrn Not Detected (NotDetected) U Benzodiazepines Scrn Not Detected (NotDetected) Urine Cocaine Screen Not Detected (NotDetected) U Marijuana (THC) Screen Not Detected (NotDetected) Serum Alcohol mg/dL 06/27/22 Range/Units 00:11 WBC (3.8-10.6) k/uL RBC (4.30-5.90) m/uL Hgb (13.0-17.5) gm/dL Hct (39.0-53.0) % MCV (80.0-100.0) fL MCH (25.0-35.0) pg MCHC (31.0-37.0) g/dL RDW (11.5-15.5) % Plt Count (150-450) k/uL MPV Neutrophils % % Lymphocytes % % Monocytes % % Eosinophils % % Basophils % % Neutrophils # (1.3-7.7) k/uL Lymphocytes # (1.0-4.8) k/uL Monocytes # (0-1.0) k/uL Eosinophils # (0-0.7) k/uL Basophils # (0-0.2) k/uL Sodium 141 (137-145) mmol/L Potassium 4.1 (3.5-5.1) mmol/L Chloride 109 H (98-107) mmol/L Carbon Dioxide 21 L (22-30) mmol/L Anion Gap 11 mmol/L BUN 11 (9-20) mg/dL Creatinine 0.88 (0.66-1.25) mg/dL Est GFR (CKD-EPI)AfAm >90 (>60 ml/min/1.73 sqM) Est GFR (CKD-EPI)NonAf >90 (>60 ml/min/1.73 sqM) Glucose 211 H (74-99) mg/dL POC Glucose (mg/dL) (70-110) mg/dL POC Glu [employer] Mechanic ID Calcium 8.2 L (8.4-10.2) mg/dL Total Bilirubin 0.5 (0.2-1.3) mg/dL AST 52 (17-59) U/L ALT 114 H (4-49) U/L Alkaline Phosphatase 90 (38-126) U/L Total Protein 6.6 (6.3-8.2) g/dL Albumin 3.9 (3.5-5.0) g/dL Amylase 77 (30-110) U/L Lipase 165 (23-300) U/L Urine Color Urine Appearance (Clear) Urine pH (5.0-8.0) Ur Specific [place] (1.001-1.035) Urine Protein (Negative) Urine Glucose (UA) (Negative) Urine Ketones (Negative) Urine Blood (Negative) Urine Nitrite (Negative) Urine Bilirubin (Negative) Urine Urobilinogen (<2.0) mg/dL Ur Leukocyte Esterase (Negative) Salicylates <1.0 mg/dL Urine Opiates Screen (NotDetected) Ur Oxycodone Screen (NotDetected) Urine Methadone Screen (NotDetected) Ur Propoxyphene Screen (NotDetected) Acetaminophen <10.0 ug/mL Ur Barbiturates Screen (NotDetected) U Tricyclic Antidepress (NotDetected) Ur Phencyclidine Scrn (NotDetected) Ur Amphetamines Screen (NotDetected) U Methamphetamines Scrn (NotDetected) U Benzodiazepines Scrn (NotDetected) Urine Cocaine Screen (NotDetected) U Marijuana (THC) Screen (NotDetected) Serum Alcohol 217 H* mg/dL - EKG Data -: EKG Interpreted by Me (EKG is sinus 80 OR 216 QRS 99 QTC 429) Disposition Clinical Impression: Drug overdose, Suicide attempt by multiple drug overdose, Depression, Bipolar I disorder, most recent episode manic, severe without psychotic features, Bipolar I disorder, most recent episode depressed, severe without psychotic features Disposition: ADMITTED IP TO THIS [facility] Condition: Fair Is patient prescribed a controlled substance at d/c from ED?: No Referrals: None,Stated [Primary Care Provider] - 1-2 days Time of Disposition: 02:05
[2022-06-27 00:05] LABS: Glucose,Whole Blood 209 mg/dL (70-110)
[2022-06-27 00:22] LABS: Basophils # (A) 0.1 k/uL (0-0.2); Basophils % (A) 1 %; Eosinophils # (A) 0.1 k/uL (0-0.7); Eosinophils % (A) 1 %; HCT 43.2 % (39.0-53.0); HGB 14.7 gm/dL (13.0-17.5); Lymphocytes # (A) 2.8 k/uL (1.0-4.8); Lymphocytes % (A) 43 %; MCH 28.4 pg (25.0-35.0); MCHC 33.9 g/dL (31.0-37.0); MCV 83.8 fL (80.0-100.0); Mean Platelet Volume 7.6; Monocytes # (A) 0.4 k/uL (0-1.0); Monocytes % (A) 6 %; Neutrophils % (A) 46 %; Platelet Count 317 k/uL (150-450); RBC 5.16 m/uL (4.30-5.90); RDW 13.8 % (11.5-15.5); WBC 6.4 k/uL (3.8-10.6)
[2022-06-27 00:27] LABS: Appearance,Urine Clear (Clear); Bilirubin,Urine Negative (Negative); Blood,Urine Negative (Negative); Color,Urine Light Yellow; Glucose,Urine (UA) Negative (Negative); Ketones,Urine Negative (Negative); Leukocyte Esterase,Urine Negative (Negative); Nitrite,Urine Negative (Negative); PH, Urine 6.5 (5.0-8.0); Protein,Urine Negative (Negative); Urobilinogen,Urine <2.0 mg/dL (<2.0)
[2022-06-27 00:37] LABS: Amphetamine Screen,Urine Not Detected (NotDetected); Barbiturate Screen,Urine Not Detected (NotDetected); Benzodiazepines Screen,Urine Not Detected (NotDetected); Cocaine Screen,Urine Not Detected (NotDetected); Methadone Screen, Urine Not Detected (NotDetected); Opiate Screen,Urine Not Detected (NotDetected); Oxycodone Screen, Urine Not Detected (NotDetected); Phencyclidine Screen,Urine Not Detected (NotDetected); Tricyclic Antidepressant,Urine Not Detected (NotDetected); Urn Cannabinoid Scrn Not Detected (NotDetected)
[2022-06-27] MEDS ORDERED: HALOPERIDOL LACTATE 5 MG/ML 1 ML VIAL IM ONE (00:42)
[2022-06-27 00:52] LABS: ALT 114 U/L (4-49); AST 52 U/L (17-59); Acetaminophen <10.0 ug/mL; African American GFR (CKD) >90 (>60 ml/min/1.73 sqM); Albumin 3.9 g/dL (3.5-5.0); Alkaline Phosphatase 90 U/L (38-126); Amylase 77 U/L (30-110); Anion Gap 11 mmol/L; Blood Urea Nitrogen 11 mg/dL (9-20); Calcium 8.2 mg/dL (8.4-10.2); Carbon Dioxide 21 mmol/L (22-30); Chloride 109 mmol/L (98-107); Glucose 211 mg/dL (74-99); Lipase 165 U/L (23-300); Non-African American GFR(CKD) >90 (>60 ml/min/1.73 sqM); Potassium 4.1 mmol/L (3.5-5.1); Salicylate <1.0 mg/dL; Sodium 141 mmol/L (137-145); Total Bilirubin 0.5 mg/dL (0.2-1.3); Total Protein 6.6 g/dL (6.3-8.2)
[2022-06-27 01:04] LABS: Alcohol 217 mg/dL
[2022-06-27] MEDS ORDERED: LORazepam 0.5 MG TAB PO PRN (02:02)
[2022-06-27] MEDS ORDERED: ONDANSETRON 4 MG/2 ML VIAL IVP PRN (02:02)
[2022-06-27] MEDS ORDERED: NALOXONE 0.4 MG/ML 1 ML VIAL IV PRN (02:02)
[2022-06-27] MEDS ORDERED: THIAMINE 100 MG/ML 2 ML VIAL IM STA (02:21)
[2022-06-27] MEDS ORDERED: LORazepam 2 MG/ML INJ IV PRN ×3 (02:21)
--- NOTE | 2022-06-27 02:21 | P.HPIM ---
History of Present Illness H&P Date: 06/27/22 The patient is a 32-year-old male with a PMH of scoliosis and depression who was brought into the emergency room by EMS after an intentional overdose. The patient was given Narcan at the scene without significant improvement. At time of interview, the patient was lethargic but was answering questions appropriately. He reported taking upwards of 10 tablets of his prescribed muscle relaxant which "starts with an M", suspected Robaxin (methocarbamol). The patient reports that he is currently undergoing a bad divorce and has also lost his job due to which he attempted to "check out". He also reports drinking heavily throughout the day today. He reported feeling tired of the time of interview but denied any additional complaints. He denied any additional illicit substance. Denied experiencing chest discomfort or shortness of breath. Also denied nausea, vomiting. EKG emergency room and revealed sinus rhythm with first-degree AV block at [address]/T-wave changes on an as reviewed by me. Laboratory evaluation was remarkable for glucose of 211 with serum alcohol level 217. The case was discussed with the ED physician in detail who reported discussing the case with poison control who had recommended continued monitoring in the hospital overnight. Review of systems: Pertinent positives and negatives as discussed in HPI, a complete review of systems was performed and all other systems are negative. Physical examination: General: non toxic, no distress, appears at stated age, normal weight obese Head: atraumatic, normocephalic, symmetric Eyes: EOMI, no lid lag, anicteric sclera, miotic pupils bilaterally ENT: Nose and ears atraumatic Neck: No cervical lymphadenopathy, trachea midline, supple Mouth: no lip lesion, mucus membranes moist Cardiovascular: S1S2 reg, no murmur, positive dorsalis pedis pulse bilateral, no edema Lungs: CTA bilateral, no rhonchi, no rales, no accessory muscle use Abdominal: soft, nontender to palpation, no guarding Ext: muscle strength 5 out of 5 in all 4 extremities grossly, no gross muscle atrophy, no contractures, Neuro: CN II-XI grossly intact, no gross focal neuro deficits Psych: Lethargic, oriented, appropriate affect Assessment/plan Lethargy, suspected intentional methocarbamol overdose -Cardiac monitoring -IV fluids -Suicide precautions -Psychiatry consulted -One-to-one observation Hyperglycemia -Check A1c -Insulin sliding scale and blood glucose monitoring DVT prophylaxis -Heparin subcu The patient is admitted with an anticipated less than 2 midnight stay for evaluation of lethargy CODE STATUS: Full Code Discussed with: Patient Anticipated discharge date: in am Anticipated discharge place: Home Past Medical History Past Medical History: Asthma, Hypertension Additional Past Medical History / Comment(s): pt states he is supposed to be on lopressor fo HTN but has not gotten it filled. History of Any Multi-Drug Resistant Organisms: None Reported Past Surgical History: Orthopedic Surgery Additional Past Surgical History / Comment(s): Bilateral knee arthroscopies. Past Anesthesia/Blood Transfusion Reactions: No Reported Reaction Past Psychological History: Anxiety, Depression Smoking Status: Current every day smoker Past Alcohol Use History: Daily Past Drug Use History: Marijuana - Past Family History Father History Unknown: Yes Mother Family Medical History: CVA/TIA, Diabetes Mellitus, Renal Disease Additional Family Medical History / Comment(s): Mother at the age of 45yrs from a heart attack. She had multiple medical problems including: heart disease, ESRD on dialysis, diabetic neuropathy and a CVA. Medications and Allergies Home Medications Medication Instructions Recorded Confirmed Type Ibuprofen [Motrin] 800 mg PO Q6HR #30 tab 12/27/20 Rx Ciprofloxacin HCl [Cipro] 500 mg PO Q12HR #14 tablet 01/09/21 Rx Dicyclomine [Bentyl] 20 mg PO QID #12 tablet 01/09/21 Rx metroNIDAZOLE [Flagyl] 500 mg PO QID #40 tab 01/09/21 Rx Amoxicillin/Potassium Clav 1 tab PO Q12HR #20 tab 10/08/21 Rx [Augmentin 875-125 Tablet] Dicyclomine [Bentyl] 20 mg PO TID #15 tablet 10/08/21 Rx Allergies Allergy/AdvReac Type Severity Reaction Status Date / Time morphine Allergy Swelling/Shortness Verified 03/21/22 15:08 of Breath Physical Exam Vitals: Vital Signs Temp Pulse Resp BP Pulse Ox 06/27/22 01:30 63 13 127/86 93 L 06/27/22 01:20 62 10 L 127/86 95 06/27/22 01:10 98.4 F 60 12 124/89 94 L 06/27/22 01:00 59 L 13 117/74 95 06/27/22 00:53 57 L 13 117/74 95 06/27/22 00:13 79 10 L 85/43 92 L 06/26/22 23:54 88 10 L 97/65 92 L 06/26/22 23:49 80 10 L 104/73 99 Intake and Output 06/26/22 06/26/22 06/27/22 14:59 22:59 06:59 Other: Weight 113.852 kg Results CBC & Chem 7: 06/27/22 00:11 06/27/22 00:11 Labs: Abnormal Lab Results - Last 24 Hours (Table) 06/27/22 06/27/22 Range/Units 00:04 00:11 Chloride 109 H (98-107) mmol/L Carbon Dioxide 21 L (22-30) mmol/L Glucose 211 H (74-99) mg/dL POC Glucose (mg/dL) 209 H (70-110) mg/dL Calcium 8.2 L (8.4-10.2) mg/dL ALT 114 H (4-49) U/L Serum Alcohol 217 H* mg/dL
[2022-06-27] MEDS: SODIUM CHLORIDE 0.9% 1,000 ML IV SCH ×4 (02:42→23:32)
[2022-06-27] MEDS: KETOROLAC 15 MG/ML 1 ML VIAL IVP SCH ×4 (06:41→22:59)
[2022-06-27] MEDS: INSULIN ASPART (NovoLOG) 100 UNIT/ML VIAL SQ SCH ×4 (06:42→22:12)
[2022-06-27 06:45] LABS: Glucose,Whole Blood 123 mg/dL (70-110)
[2022-06-27 11:20] LABS: Glucose,Whole Blood 108 mg/dL (70-110)
--- NOTE | 2022-06-27 12:34 | P.PN ---
Progress Note - Text Progress Note Date: 06/27/22 Hospitalist Interval Note Patient seen and examined at bedside. Vital signs reviewed General: non toxic, no distress, appears at stated age Derm: warm, dry Head: atraumatic, normocephalic, symmetric Eyes: EOMI, no lid lag, anicteric sclera Mouth: no lip lesion, mucus membranes moist Cardiovascular: S1S2 reg, no murmur, positive posterior tibial pulse bilateral, Lungs: CTA bilateral, no rhonchi, no rales , no accessory muscle use Abdominal: soft, nontender to palpation, no guarding, no appreciable organomegaly Ext: no gross muscle atrophy, no edema, no contractures Neuro: CN II-XI grossly intact, no focal neuro deficits Psych: Alert, oriented, appropriate affect Assessment/Plan: Intentional overdose Suicidal ideations Lethargy Prediabetes Alcohol intoxication -Pending psychiatric evaluation -Sitter at bedside -Suicide precautions -On IV fluids -CIWA, benzo as needed -Thiamine This is an update note for patient. There is no charge associated with this note.
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
[2022-06-27 21:08] LABS: Glucose,Whole Blood 113 mg/dL (70-110)
[2022-06-28 06:29] LABS: Glucose,Whole Blood 98 mg/dL (70-110)
[2022-06-28] MEDS: KETOROLAC 15 MG/ML 1 ML VIAL IVP SCH ×2 (06:31→12:02)
[2022-06-28 07:52] VITALS: PULSE 71; RESP 14; TEMP 98.2
[2022-06-28] MEDS: INSULIN ASPART (NovoLOG) 100 UNIT/ML VIAL SQ SCH ×2 (08:05→12:02)
[2022-06-28] MEDS ORDERED: THIAMINE 100 MG TAB PO SCH (09:00)
[2022-06-28] MEDS ORDERED: amLODIPine 5 MG TAB PO SCH (10:30)
[2022-06-28] MEDS: SODIUM CHLORIDE 0.9% 1,000 ML IV SCH (11:08)
--- NOTE | 2022-06-28 11:17 | P.DS ---
Providers Date of admission: 06/27/22 02:02 Expected date of discharge: 06/28/22 Attending physician: Maureen Johnson MD Consults: 06/27/22 02:02 Consult Physician Routine Consulting Provider: Jose Miguel Shirley Consult Reason/Comments: OD Do you want consulting provider notified?: Yes Primary care physician: Stated None Hospital Course: Discharge Diagnosis: Intentional overdose Suicidal ideation Depression Alcohol intoxication Scoliosis Hyperglycemia Hypertension Hospital Course: 32-year-old male with a PMH of scoliosis and depression who was brought into the emergency room by EMS after an intentional overdose. He likely took 10 tablets of prescribed muscle relaxant, possibly Robaxin. Patient has been slightly hypertensive, rest of the vital signs have been stable. EKG and revealed sinus rhythm with first-degree AV block at [address]/T-wave changes. Laboratory evaluation was remarkable for glucose of 211 with serum alcohol level 217. Patient remained on IV fluids. Ativan as needed per CIWA scores. Sitter at bedside. Psychiatry consulted. Patient to be discharged to inpatient psych. Patient also started on amlodipine 5 mg daily. Patient seen and examined at bedside. Vital signs reviewed and stable. General: nontoxic, no distress, appears at stated age Derm: warm, dry Head: atraumatic, normocephalic, symmetric Eyes: EOMI, no lid lag, anicteric sclera Mouth: no lip lesion, mucus membranes moist Cardiovascular: S1S2 reg, no murmur Lungs: CTA bilateral, no rhonchi, no rales , no accessory muscle use Abdominal: soft, nontender to palpation, no guarding, no appreciable organomegaly Ext: no gross muscle atrophy, no edema, no contractures Neuro: CN II-XI grossly intact, no focal neuro deficits Psych: Alert, oriented, appropriate affect A total of 36 minutes of time were spent preparing this complex discharge summary. Patient was discharged on 06/28/22 at 10:01. Patient Condition at Discharge: Stable Plan - Discharge Summary Discharge Rx Participant: No New Discharge Prescriptions: New amLODIPine [Norvasc] 5 mg PO DAILY tab Thiamine [Vitamin B-1] 100 mg PO DAILY tab Continue Omeprazole [PriLOSEC] 40 mg PO DAILY Discharge Medication List Omeprazole [PriLOSEC] 40 mg PO DAILY 06/27/22 [History] Thiamine [Vitamin B-1] 100 mg PO DAILY tab 06/28/22 [Rx] amLODIPine [Norvasc] 5 mg PO DAILY tab 06/28/22 [Rx] Follow up Appointment(s)/Referral(s): None,Stated [Primary Care Provider] - 1-2 days Discharge Disposition: TRANSFER TO PSYCH HOSP/UNIT
[2022-06-28] MEDS ORDERED: lisinopriL 10 MG TAB PO SCH (13:15)
[2022-06-28 14:11] VITALS: BP 153/97
== END 2022-06-28 15:06 ==
LOC: EC 23:47 → 4SSUR 06-27 02:02
PROVIDERS: ADMIT Internal Medicine; ATTEND Internal Medicine
DX: T50.912A Poisoning by multiple unspecified drugs, medicaments and biological substances, intentional self-harm, initial encounter (principal); R45.851 Suicidal ideations; F10.129 Alcohol abuse with intoxication, unspecified; M41.9 Scoliosis, unspecified; R73.9 Hyperglycemia, unspecified; J45.909 Unspecified asthma, uncomplicated; I10 Essential (primary) hypertension; F41.9 Anxiety disorder, unspecified; F31.9 Bipolar disorder, unspecified; Z20.822 Contact with and (suspected) exposure to COVID-19; F17.200 Nicotine dependence, unspecified, uncomplicated; R41.82 Altered mental status, unspecified; Z82.3 Family history of stroke; Z83.3 Family history of diabetes mellitus; Z84.1 Family history of disorders of kidney and ureter; Z82.49 Family history of ischemic heart disease and other diseases of the circulatory system; Z79.1 Long term (current) use of non-steroidal anti-inflammatories (NSAID); Z79.899 Other long term (current) drug therapy; Z88.5 Allergy status to narcotic agent
CPT/HCPCS: 96376; 96361 ×2; 96374; 96372; 99285; 36415; 94760 ×2; 93005; 80053; 84443; 82150; 83690; 85025; 81003; 80306; 80143; 80320; 83036; 87635; 80179; G0378 ×2; J3411; J1885 ×2

== ENCOUNTER 2022-06-28 15:28 | Inpatient (IN) | payer BC, MEDICAID ==
[2022-06-28] MEDS ORDERED: MAG HYDROX/AL HYDROX/SIMETH 30 ML CUP PO PRN (15:39)
[2022-06-28] MEDS ORDERED: ACETAMINOPHEN TAB 325 MG TAB PO PRN (15:39)
[2022-06-28] MEDS ORDERED: MAGNESIUM HYDROXIDE 2,400 MG/10 ML CUP PO PRN (15:39)
[2022-06-28] MEDS ORDERED: HALOPERIDOL LACTATE 5 MG/ML 1 ML VIAL IM PRN (15:39)
[2022-06-28] MEDS ORDERED: hydrOXYzine pamoate 25 MG CAP PO PRN (15:43)
[2022-06-28] MEDS ORDERED: haloperidoL 5 MG TAB PO PRN (15:44)
--- NOTE | 2022-06-28 20:08 | P.CONS ---
History of Present Illness - Reason for Consult Consult date: 06/28/22 - History of Present Illness The patient is a 32-year-old male with a PMH of hypertension and scoliosis who was brought into the emergency room for an intentional overdose on suspected Robaxin. Patient was initially admitted to the medicine service where he was monitored and essentially discharged to the mental health unit for depression with suicidal ideation earlier today. The patient reports that he feels better at the time of interview. He denied any physical complaints. He denied experiencing chest discomfort, shortness of breath, fever, chills, cough, nausea, vomiting, abdominal pain, diarrhea. He denied experiencing chest discomfort, shortness of breath, fever, chills, cough, nausea, vomiting, abdominal pain, diarrhea. Reports smoking half pack of cigarettes daily and occasional social alcohol use. Denied illicit substance use. Review of systems: Pertinent positives and negatives as discussed in HPI, a complete review of systems was performed and all other systems are negative. Physical examination: General: non toxic, no distress, appears at stated age, obese Derm: no unusual rashes/lesions, no unusual ecchymoses, warm, dry Head: atraumatic, normocephalic, symmetric Eyes: EOMI, no lid lag, anicteric sclera ENT: Nose and ears atraumatic, no thrush, no pharyngeal erythema Neck: trachea midline, supple Mouth: no lip lesion, mucus membranes moist Cardiovascular: S1S2 reg, no murmur, no edema Lungs: CTA bilateral, no rhonchi, no rales , no accessory muscle use Abdominal: soft, nontender to palpation, no guarding Ext: no gross muscle atrophy, no contractures, Neuro: No gross focal neuro deficits noted Psych: Alert, oriented, appropriate affect Assessment/plan Chronic conditions: Hypertension -Patient has been hypertensive despite being on Norvasc and Lisinopril -We'll increase Norvasc to 10 mg daily and continue with lisinopril 10 mg Depression with suicidal ideation -As per psychiatry Alcohol abuse -Continue with thiamine -Monitor for signs of withdrawal -Advised on importance of cessation Thank you for allowing us to participate in the care of this patient. We will follow peripherally. Do not hesitate to contact us with questions. Someone can be reached from the [facility] hospitalist group at all hours of the day at [phone]. Past Medical History Past Medical History: Asthma, Hypertension Additional Past Medical History / Comment(s): pt states he is supposed to be on lopressor fo HTN but has not gotten it filled. History of Any Multi-Drug Resistant Organisms: None Reported Past Surgical History: Orthopedic Surgery Additional Past Surgical History / Comment(s): Bilateral knee arthroscopies. Past Anesthesia/Blood Transfusion Reactions: No Reported Reaction Past Psychological History: Anxiety, Depression Additional Psychological History / Comment(s): suicide attempts/ideation Smoking Status: Current every day smoker, Smoker, current status unknown Past Alcohol Use History: Daily Additional Past Alcohol Use History / Comment(s): pt states he doesn't currenlty drink more than 14 drinks per week. Past Drug Use History: Marijuana - Past Family History Father History Unknown: Yes Mother Family Medical History: CVA/TIA, Diabetes Mellitus, Renal Disease Additional Family Medical History / Comment(s): Mother at the age of 45yrs from a heart attack. She had multiple medical problems including: heart dise ase, ESRD on dialysis, diabetic neuropathy and a CVA. Medications and Allergies Home Medications Medication Instructions Recorded Confirmed Type Omeprazole [PriLOSEC] 40 mg PO DAILY 06/27/22 06/28/22 History Thiamine [Vitamin B-1] 100 mg PO DAILY tab 06/28/22 06/28/22 Rx amLODIPine [Norvasc] 5 mg PO DAILY tab 06/28/22 06/28/22 Rx lisinopriL [Zestril] 10 mg PO DAILY tab 06/28/22 06/28/22 Rx Allergies Allergy/AdvReac Type Severity Reaction Status Date / Time morphine Allergy Swelling/Shortness Verified 06/27/22 11:37 of Breath Physical Exam Vitals: Vital Signs Temp Pulse Resp BP Pulse Ox 06/28/22 16:24 97.4 F L 73 16 140/91 97 Intake and Output 06/28/22 06/28/22 06/28/22 06:59 14:59 22:59 Other: Weight 109.9 kg
[2022-06-29] MEDS: THIAMINE 100 MG TAB PO SCH (08:45)
[2022-06-29] MEDS: PANTOPRAZOLE 40 MG TABLET PO SCH (08:45)
[2022-06-29] MEDS ORDERED: lisinopriL 10 MG TAB PO SCH (09:00)
[2022-06-29] MEDS ORDERED: amLODIPine 10 MG TAB PO SCH (09:00)
[2022-06-29] MEDS ORDERED: amLODIPine 5 MG TAB PO SCH (09:00)
[2022-06-29] MEDS: FLUoxetine HCL 10 MG CAP PO SCH (15:31)
[2022-06-29 16:45] LABS: LDL Cholesterol,Calculated 76.3 mg/dL (0.0-131.0)
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
[2022-06-30] MEDS: THIAMINE 100 MG TAB PO SCH (08:46)
[2022-06-30] MEDS: PANTOPRAZOLE 40 MG TABLET PO SCH (08:46)
[2022-06-30] MEDS: FLUoxetine HCL 10 MG CAP PO SCH (08:46)
[2022-06-30] MEDS ORDERED: FLUoxetine HCL 20 MG CAP PO STA (11:24)
[2022-06-30] MEDS ORDERED: traZODone HCL 100 MG TAB PO PRN (11:31)
[2022-06-30] MEDS ORDERED: NICOTINE GUM (POLACRILEX) 2 MG GUM BUCCAL PRN (11:45)
--- NOTE | 2022-06-30 12:04 | P.PN ---
Progress Note - Text Progress Note Date: 06/30/22 Interval History: Patient was seen lying in his bed today and was directable and agreeable to sp eak with telegraphic typewriter operator chief in the office. Patient was fairly focused on discharge today and states that he has to go present himself to a job that he just got. 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 He claims that he is doing a bit better with regards to his mood however does appear to be frustrated and angry at times. We spoke about his medications as patient is currently on Prozac 10 mg daily. He claims that he usually takes a weekly dose. We spoke about increasing his medication to 40 mg both today and tomorrow. He was fairly upset when we spoke about possible discharge tomorrow and was pushing telegraphic typewriter operator chief to be discharged today. He states that he is not interested in going to many groups helpful that he go to some today. He claims that he was having problems at home with his however feel safe to go home and denies having access to any guns or weapons. He states that he did not sleep well last night and trazodone has helped him in the past which she is agreeable to start tonight. Insight fair appetite. At this time patient denies any suicidal or homical ideations, intent or plan. Patient denies any auditory, visual hallucinations and denies any paranoia or delusions. Patient denies any side effects from the medications and has been compliant with meds. Mental Status Exam: General Appearance: [Patient appears to be called, well-built, has dreads, stated age is alert, directable, and cooperative. upset at times] Behavior: [Patient is calmly seated without any agitated behavior.] upset at times. focused on discharge Speech: Patient's speech is fluent and nonpressured. Mood/Affect: Mood is improving mildly, affect is congruent and constricted. Suicidality/Homicidality: Patient denies having any suicidal or homicidal ideation intent or plan. Perceptions: Patient denies any visual hallucinations [and denies any auditory hallucinations] Though content/process: [There is no evidence of any delusional thought content and thought process is linear and goal-directed.] focused on discharge Memory and concentration: AOX3, grossly intact for the purposes of this session Judgment and insight: Improving mildly Assessment []Major depressive disorder, without psychotic features Alcohol abuse Suicide attempt nicotine dependence Plan: -Patient continues to meet criteria for inpatient psychiatric admission for symptom stabilization and safety. Patient has signed [adult voluntary form and] [medication consent] and was placed in patient's chart. -Medications: Increase Prozac to 30 mg for today total and increased to 40 mg f or tomorrow for depression/anxiety. Added trazodone 100 mg daily at bedtime when necessary for insomnia. vistaril [rn for anxiety. -When necessary Haldol for agitation/aggression. -NRT - [nicotine patch] -SW on board for discharge planning. Encouraged the patient to participate in milieu. likely discharge back home tomorrow.
[2022-07-01 07:15] VITALS: BP 163/67; PULSE 70; RESP 14; TEMP 97.6
[2022-07-01] MEDS: PANTOPRAZOLE 40 MG TABLET PO SCH (08:22)
[2022-07-01] MEDS: THIAMINE 100 MG TAB PO SCH (08:22)
[2022-07-01] MEDS ORDERED: FLUoxetine HCL 20 MG CAP PO SCH (09:00)
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
== END 2022-07-01 12:55 | disposition home or self-care (01) | DRG 885 ==
LOC: 3MHU 15:28
PROVIDERS: ADMIT Psychiatry & Neurology Psychiatry; ATTEND Psychiatry & Neurology Psychiatry
DX: F31.30 Bipolar disorder, current episode depressed, mild or moderate severity, unspecified (principal); F10.10 Alcohol abuse, uncomplicated; F41.9 Anxiety disorder, unspecified; F43.10 Post-traumatic stress disorder, unspecified; I10 Essential (primary) hypertension; J45.909 Unspecified asthma, uncomplicated; T48.2 Poisoning by, adverse effect of and underdosing of other and unspecified drugs acting on muscles; M41.9 Scoliosis, unspecified; G47.00 Insomnia, unspecified; F17.210 Nicotine dependence, cigarettes, uncomplicated; Z71.6 Tobacco abuse counseling; Z79.899 Other long term (current) drug therapy; Z63.0 Problems in relationship with spouse or partner; Z71.41 Alcohol abuse counseling and surveillance of alcoholic; Z71.51 Drug abuse counseling and surveillance of drug abuser; Z88.5 Allergy status to narcotic agent
CPT/HCPCS: 80061; 83036; 84443